=== PATIENT | female | born 1995 | race American Indian/Alaskan Native ===

== ENCOUNTER 2016-10-30 19:59 | Inpatient (IN) | payer MEDICAID, OTHER ==
[2016-10-30] MEDS ORDERED: Sodium Chloride 0.9% 1,000 ML IV ONE (21:11)
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
[2016-10-30] MEDS ORDERED: Insulin Regular, Human 100 Units/ML 10 ML Vial IVPUSH ONE (21:21)
[2016-10-30 21:37] LABS: CHLORIDE,CL 84 mmol/L (101-111); SODIUM,NA 115 mmol/L (135-145)
[2016-10-30] MEDS ORDERED: HYDROmorphone 1 MG/ML Syringe IVPUSH ONE (22:03)
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
[2016-10-30] MEDS ORDERED: Ondansetron 4 MG/2 ML SDV IV PRN (23:03)
[2016-10-30] MEDS ORDERED: Sodium Chloride 0.9% 1,000 ML IV SCH (23:15)
[2016-10-31] MEDS: Dextrose 5%-0.9% NaCl 1,000 ML IV SCH ×2 (01:41→15:22)
[2016-10-31 06:49] LABS: CHLORIDE,CL 100 mmol/L (101-111); SODIUM,NA 134 mmol/L (135-145)
[2016-10-31] MEDS ORDERED: Potassium Chloride 20 MEQ in Premix Bag 1 BAG IV ONE (07:50)
[2016-10-31] MEDS ORDERED: Potassium Chloride 10 MEQ Tab.ER PO ONE (07:51)
[2016-10-31] MEDS: Acetaminophen/oxyCODONE 325-5 MG Tab PO PRN ×2 (09:47→22:21)
[2016-10-31] MEDS: Pantoprazole 40 MG Vial IVPUSH SCH (09:59)
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
[2016-10-31] MEDS ORDERED: Insulin Aspart 100 Units/ML 3 ML Pen SUBCUT SCH (17:00)
[2016-10-31] MEDS: Insulin Aspart 100 Units/ML 3 ML Pen SUBCUT SCH (21:05)
[2016-11-01] MEDS ORDERED: Insulin Aspart 100 Units/ML 3 ML Pen SUBCUT STA (01:13)
[2016-11-01] MEDS: Insulin Aspart 100 Units/ML 3 ML Pen SUBCUT SCH ×6 (01:44→22:16)
[2016-11-01] MEDS: Dextrose 5%-0.9% NaCl 1,000 ML IV SCH (04:55)
[2016-11-01 07:28] LABS: CHLORIDE,CL 107 mmol/L (101-111); SODIUM,NA 138 mmol/L (135-145)
[2016-11-01] MEDS: Acetaminophen 325 MG Tab PO PRN ×2 (07:38→22:18)
[2016-11-01] MEDS ORDERED: Insulin Detemir 100 Units/ML 3 ML Pen SUBCUT SCH ×2 (09:00→12:14)
[2016-11-01] MEDS ORDERED: Insulin Aspart 100 Units/ML 3 ML Pen SUBCUT ONE (09:18)
[2016-11-01] MEDS ORDERED: Enoxaparin 30 MG/0.3 ML Syringe SUBCUT SCH (09:30)
[2016-11-01] MEDS: Pantoprazole 40 MG Vial IVPUSH SCH (13:16)
[2016-11-01] MEDS ORDERED: Insulin Detemir 100 Units/ML 3 ML Pen SUBCUT ONE (13:16)
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
[2016-11-01] MEDS: Enoxaparin 40 MG/0.4 ML Syringe SUBCUT SCH (15:07)
[2016-11-01] MEDS: Acetaminophen/oxyCODONE 325-5 MG Tab PO PRN (15:07)
[2016-11-02 06:54] LABS: CHLORIDE,CL 101 mmol/L (101-111); SODIUM,NA 134 mmol/L (135-145)
[2016-11-02] MEDS: Acetaminophen/oxyCODONE 325-5 MG Tab PO PRN (06:59)
[2016-11-02] MEDS: Insulin Aspart 100 Units/ML 3 ML Pen SUBCUT SCH ×2 (08:13→11:35)
[2016-11-02] MEDS: Enoxaparin 40 MG/0.4 ML Syringe SUBCUT SCH (09:08)
[2016-11-02] MEDS ORDERED: Insulin Aspart 100 Units/ML 3 ML Pen SUBCUT ONE (09:16)
[2016-11-02 11:02] VITALS: BP 109/67
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
== END 2016-11-02 11:20 | disposition home or self-care (01) | DRG 639 ==
LOC: DL.ED 19:59 → DL.MS 22:21
PROVIDERS: ADMIT Internal Medicine Nephrology; ATTEND Internal Medicine Nephrology
DX: E10.10 Type 1 diabetes mellitus with ketoacidosis without coma (principal); Z79.4 Long term (current) use of insulin; E86.0 Dehydration; S20.211A Contusion of right front wall of thorax, initial encounter; Z87.891 Personal history of nicotine dependence; E87.5 Hyperkalemia; R20.2 Paresthesia of skin; T38.3X6A Underdosing of insulin and oral hypoglycemic [antidiabetic] drugs, initial encounter; Z91.128 Patient's intentional underdosing of medication regimen for other reason; Y04.2XXA Assault by strike against or bumped into by another person, initial encounter; Z88.8 Allergy status to other drugs, medicaments and biological substances
CPT/HCPCS: 36415; 71101-RT; 72040; 80048; 80053; 80305; 81001; 81025; 82009; 82962; 84132; 85025; 96361; 96374; 96375; 99285; A9270-GY; C9113; J1170; J1650; J1815-GY; J2405; J3480; J7030; J7042

== ENCOUNTER 2016-11-23 17:38 | Emergency (ER) | payer MEDICAID ==
[2016-11-23] MEDS ORDERED: LORazepam 2 MG/ML Syringe ONE (19:40)
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
[2016-11-23 21:08] LABS: CHLORIDE,CL 93 mmol/L (101-111); SODIUM,NA 126 mmol/L (135-145)
[2016-11-23] MEDS ORDERED: Insulin Regular, Human 100 Units/ML 10 ML Vial IVPUSH ONE (21:20)
[2016-11-23] MEDS ORDERED: Sodium Chloride 0.9% 1,000 ML IV ONE ×2 (21:24→22:28)
[2016-11-23 21:45] VITALS: BP 120/69
[2016-11-23] MEDS ORDERED: HYDROmorphone 1 MG/ML Syringe IVPUSH ONE (22:06)
[2016-11-23] MEDS ORDERED: Ondansetron 4 MG/2 ML SDV IV ONE (22:06)
[2016-11-23] MEDS ORDERED: Iopamidol 612 MG/ML 75 ML Bottle IVPUSH ONE (23:15)
== END 2016-11-24 00:24 | disposition home or self-care (01) ==
LOC: DL.ED 17:38
DX: E10.65 Type 1 diabetes mellitus with hyperglycemia (principal); E87.1 Hypo-osmolality and hyponatremia; D64.9 Anemia, unspecified; Z90.49 Acquired absence of other specified parts of digestive tract; Z79.4 Long term (current) use of insulin; Z88.8 Allergy status to other drugs, medicaments and biological substances
CPT/HCPCS: 36415; 74177; 80053; 80305; 81001; 81025; 82009; 82150; 82962; 83690; 84703; 85025; 87491; 87591; 96365; 96366; 96375; 99284; J1170; J2405; J7030; Q9967

== ENCOUNTER 2016-12-14 05:57 | Day surgery (SDC) | payer MEDICAID ==
[2016-12-14] MEDS ORDERED: fentaNYL 100 MCG/2 ML SDV ONE (06:14)
[2016-12-14] MEDS ORDERED: Midazolam 1 MG/ML 2 ML SDV ONE (06:14)
[2016-12-14] MEDS ORDERED: Dextrose 5%-0.45% NaCl 1,000 ML IV SCH (06:30)
[2016-12-14] MEDS ORDERED: fentaNYL 100 MCG/2 ML SDV IV ONE ×3 (07:18→10:03)
[2016-12-14] MEDS ORDERED: Midazolam 1 MG/ML 2 ML SDV IV ONE ×4 (08:22→10:03)
--- NOTE | 2016-12-14 10:24 | OR ---
DATE: 12/14/2016 PROCEDURE: Esophagogastroduodenoscopy and multiple pinch biopsies. INSTRUMENT USED: GIF-Q180 Olympus video panendoscope. PREMEDICATIONS: No oral topical anesthesia used. Fentanyl 100 mcg intravenous, Versed 2 mg intravenous given. The procedure was done under pulse oximetry, BP recording, and manager cardiac cath. INDICATION: The patient with type 1 diabetes mellitus having persistent abdominal pain, as well as anemia unexplained not responsive to medical measures. Esophagogastroduodenoscopy is performed for detection of any active erosive lesions, malignancy also under consideration, H. pylori status to be determined, small bowel biopsies to be obtained for celiac disease if indicated, endoscopic hemostasis therapy if needed. DESCRIPTION OF PROCEDURE: The scope was passed with ease. Adequate visualization of the esophagus was made from proximal to distal areas. No upper esophageal lesions identified. No distal esophageal stricture. No uphill or downhill esophageal varices. No Miranda-Hernandez tear. No evidence of erosive esophagitis by [place] criteria. No esophageal polyp or tumor mass identified. Z-line was seen at around 40 cm distal to the oral verge, configuration consistent with grade 1 by ZAP classification. No proximal gastric varices noted. Gastric fundus examination by retroflexion showed no polypoid lesions. No gastric ulcer, malignant mass, or vascular ectasia identified. Gastric mucosa was found to be a bit granular especially in the body. Duodenal bulb showed no ulcer. Visualized second part of the duodenum was unremarkable. Multiple pinch biopsies, 4 in number were taken from different areas of the second part of the duodenum, and tissues were also obtained from 9 and 12 o'clock positions of the duodenal bulb and sent for any histopathologic evidence of celiac disease. Multiple pinch biopsies were also obtained from the gastric antrum and proximal body and sent for PyloriTek test for H. pylori and histopathology. No bleeding was noted from any of the visualized areas at the completion of examination. Photographs were taken of the duodenal bulb, gastric antrum, fundus, and distal esophagus. IMPRESSION: Normal study. The patient tolerated the procedure well. [facility] /[id number]
[2016-12-14 11:14] VITALS: BP 116/80
--- NOTE | 2016-12-14 11:41 | LETTER ---
12/14/2016 Nicole Mcmanus MD [facility] [address] [place] [address] RE: ZACH GRAMAJO : [address] Mcmanus: Ms. Zach Carlisle had esophagogastroduodenoscopy done this morning and she tolerated the procedure well. I herewith send a copy of the endoscopy note and photographs for your review. Thank you. Sincerely, [facility] /[id number]
== END 2016-12-14 10:37 | disposition home or self-care (01) ==
LOC: DL.ENDO 05:57
PROVIDERS: ATTEND Internal Medicine Gastroenterology
DX: R10.9 Unspecified abdominal pain (principal); D64.9 Anemia, unspecified; E10.9 Type 1 diabetes mellitus without complications
CPT/HCPCS: 43239; 81025; 87077; J2250; J3010; J7042

== ENCOUNTER 2016-12-18 00:07 | Emergency (ER) | payer MEDICAID ==
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
[2016-12-18 02:17] VITALS: BP 143/73
[2016-12-18 02:30] LABS: CHLORIDE,CL 95 mmol/L (101-111); SODIUM,NA 132 mmol/L (135-145)
[2016-12-18] MEDS ORDERED: LORazepam 2 MG/ML Syringe IVPUSH ONE (02:48)
== END 2016-12-18 04:10 | disposition home or self-care (01) ==
LOC: DL.ED 00:07
DX: R20.8 Other disturbances of skin sensation (principal); E10.9 Type 1 diabetes mellitus without complications; Z88.8 Allergy status to other drugs, medicaments and biological substances; Z79.4 Long term (current) use of insulin; Z86.2 Personal history of diseases of the blood and blood-forming organs and certain disorders involving the immune mechanism; Z79.899 Other long term (current) drug therapy; Z87.891 Personal history of nicotine dependence
CPT/HCPCS: 36415; 80053; 80305; 81001; 81025; 82962; 85025; 96374; 99284; J2060

== ENCOUNTER 2016-12-23 07:05 | Day surgery (SDC) | payer MEDICAID ==
[~2016-12-23 07:05] MED LIST: Dextrose 5%-0.45% NaCl 1,000 ML IV SCH; Midazolam 1 MG/ML 2 ML SDV ONE; Sodium Chloride 0.9% 10 ML Syringe FLUSH PRN; fentaNYL 100 MCG/2 ML SDV ONE
[2016-12-23] MEDS ORDERED: fentaNYL 100 MCG/2 ML SDV IV ONE ×3 (08:17→14:52)
[2016-12-23] MEDS ORDERED: Midazolam 1 MG/ML 2 ML SDV IV ONE ×4 (08:18→14:52)
[2016-12-23 10:30] VITALS: BP 116/66
--- NOTE | 2016-12-23 10:50 | OR ---
DATE: 12/23/2016 PROCEDURE: Incomplete colonoscopy. INSTRUMENT USED: PCF-H180 Olympus video colonoscope. PREMEDICATIONS: Fentanyl 100 mcg intravenous, Versed 2.5 mg intravenous. Nasal O2 cannula. The procedure was done under pulse oximetry, BP recording, and case monitor. INDICATION: The patient with unexplained iron-deficiency anemia and multiple abdominal symptoms. Colonoscopic examination is done for detection of any polypoid lesions and removal, endoscopic hemostasis therapy if needed. DESCRIPTION OF PROCEDURE: Initial rectal exam was unremarkable. Rigid anoscopy was normal. The colonoscope was passed with ease up to distal descending colon. Large amount of solid fecal material was noted precluding further advancement of the scope to visualize proximal areas. No bleeding was noted from any of the visualized areas at the commencement of the examination. No stricture. No vascular ectasia. No large isolated ulcerations seen. No evidence of diffuse inflammatory bowel disease in the form of friability, contact bleeding, or ulcerations. No polyp or tumor mass identified. No bleeding was noted from the visualized areas at the completion of examination. IMPRESSION: Normal study. The patient tolerated the procedure well. [facility] /[id number]
--- NOTE | 2016-12-23 10:56 | LETTER ---
12/23/2016 Nicole Mcmanus MD [facility] [address] [place] [address] RE: ZACH VILLANUEVA : [address] Mcmanus. Ms. Zach Villanueva had colonoscopic examination this morning and she tolerated the procedure well. I herewith send a copy of the endoscopy note for your review. The examination was incomplete due to the presence of large amount of solid fecal material that could not be aspirated clear. She will be rescheduled with 2-day bowel preparation later. Thank you Sincerely, [facility] /[id number]
== END 2016-12-23 10:30 | disposition home or self-care (01) ==
LOC: DL.ENDO 07:05
PROVIDERS: ATTEND Internal Medicine Gastroenterology
DX: D50.9 Iron deficiency anemia, unspecified (principal); E10.9 Type 1 diabetes mellitus without complications; Z88.8 Allergy status to other drugs, medicaments and biological substances; Z79.4 Long term (current) use of insulin; Z79.899 Other long term (current) drug therapy; Z90.49 Acquired absence of other specified parts of digestive tract
CPT/HCPCS: 45378; J2250; J3010; J7042

== ENCOUNTER 2017-01-14 05:54 | Day surgery (SDC) | payer MEDICAID ==
[~2017-01-14 05:54] MED LIST changes: -Dextrose 5%-0.45% NaCl 1,000 ML IV SCH; +Midazolam 1 MG/ML 2 ML SDV IV ONE; -Sodium Chloride 0.9% 10 ML Syringe FLUSH PRN; +fentaNYL 100 MCG/2 ML SDV IV ONE
[2017-01-14] MEDS ORDERED: fentaNYL 100 MCG/2 ML SDV IV ONE ×2 (06:49→06:50)
[2017-01-14] MEDS ORDERED: Midazolam 1 MG/ML 2 ML SDV IV ONE ×4 (06:50→06:53)
[2017-01-14] MEDS ORDERED: Sodium Chloride 0.9% 10 ML Syringe FLUSH PRN (07:30)
[2017-01-14] MEDS ORDERED: Dextrose 5%-0.45% NaCl 1,000 ML IV SCH (07:30)
[2017-01-14 09:38] VITALS: BP 137/89
--- NOTE | 2017-01-14 10:45 | OR ---
DATE: 01/14/2017 PROCEDURE: Incomplete colonoscopy. INSTRUMENT USED: PCF-160AL Olympus video colonoscope. PREMEDICATIONS: Fentanyl 100 mcg intravenous, Versed 3 mg intravenous. The procedure was done under pulse oximetry, BP recording, and night monitor. INDICATION: The patient with unexplained iron-deficiency anemia and multiple persistent abdominal symptoms. Colonoscopic examination is done for detection of any polypoid lesions and removal, endoscopic hemostasis therapy if needed. DESCRIPTION OF PROCEDURE: Initial rectal exam showed some fecal material at the tip of the finger. Rigid anoscopy was normal. The colonoscope was passed with ease up to mid descending colon, beyond which the scope could not be passed due to the large amount of solid material blocking the area. No stricture. No vascular ectasia. No large isolated ulcerations seen. No evidence of diffuse inflammatory bowel disease in the form of friability, contact bleeding, or ulcerations. No polyp or tumor mass identified. Large amount of solid fecal material was noted at the visualized colon. No bleeding was noted from any of the visualized areas at the completion of examination. IMPRESSION: Normal study. The patient tolerated the procedure well. [facility] /[id number]
--- NOTE | 2017-01-14 11:46 | LETTER ---
01/14/2017 Nicole Mcmanus MD [facility] [address] [place] [address] RE: ZACH GRAMAJO : [address] Mcmanus: Ms. Zach Carlisle had incomplete colonoscopy done this morning and she tolerated the procedure well. I herewith send a copy of the endoscopy note and photographs for your review. Thank you. Sincerely, [facility] /[id number]
== END 2017-01-14 08:42 | disposition home or self-care (01) ==
LOC: DL.ENDO 05:54
PROVIDERS: ATTEND Internal Medicine Gastroenterology
DX: D50.9 Iron deficiency anemia, unspecified (principal)
CPT/HCPCS: 45378; J2250; J3010; J7042

== ENCOUNTER 2017-02-20 13:04 | Emergency (ER) | payer MEDICAID ==
[2017-02-20 13:44] VITALS: BP 117/71
[2017-02-20] MEDS ORDERED: Acetaminophen 500 MG Tab PO ONE (14:55)
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
== END 2017-02-20 15:52 | disposition home or self-care (01) ==
LOC: DL.ED 13:04
DX: S90.31XA Contusion of right foot, initial encounter (principal); E10.9 Type 1 diabetes mellitus without complications; Z90.49 Acquired absence of other specified parts of digestive tract; Z79.4 Long term (current) use of insulin; Z79.899 Other long term (current) drug therapy; Z88.8 Allergy status to other drugs, medicaments and biological substances; W22.8XXA Striking against or struck by other objects, initial encounter
CPT/HCPCS: 73620; 80305; 81025; 99283; A9270

== ENCOUNTER 2017-03-31 19:41 | Inpatient (IN) | payer MEDICAID ==
[2017-03-31] MEDS ORDERED: Sodium Chloride 0.9% 1,000 ML IV ONE (20:02)
[2017-03-31] MEDS ORDERED: Lidocaine 1% 30 ML SDV INJECT ONE (20:21)
[2017-03-31 20:46] LABS: CHLORIDE,CL 88 mmol/L (101-111); SODIUM,NA 124 mmol/L (135-145)
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
[2017-03-31] MEDS ORDERED: Insulin Regular, Human 100 Units/ML 3 ML Vial IV ONE (21:00)
[2017-03-31] MEDS ORDERED: Morphine 2 MG/ML Syringe IVPUSH ONE (21:50)
[2017-03-31] MEDS ORDERED: Zolpidem 5 MG Tab PO PRN (22:18)
[2017-03-31] MEDS: Acetaminophen/oxyCODONE 325-5 MG Tab PO PRN (23:03)
[2017-03-31] MEDS: Pantoprazole 40 MG Tab.CR PO SCH (23:03)
[2017-03-31] MEDS: Piperacillin/Tazobactam 3.375 GM in Sodium Chloride 0.9% 100 ML IV SCH (23:42)
[2017-03-31] MEDS: Sodium Chloride 0.9% 1,000 ML IV SCH (23:46)
[2017-04-01] MEDS: Ondansetron 4 MG/2 ML SDV IVPUSH PRN (00:44)
[2017-04-01] MEDS ORDERED: Metoclopramide 10 MG/2 ML SDV IVPUSH PRN (01:46)
[2017-04-01] MEDS: Promethazine 25 MG/ML SDV IM PRN (02:00)
[2017-04-01] MEDS: Acetaminophen 325 MG Tab PO PRN (02:01)
--- NOTE | 2017-04-01 02:05 | HP ---
CHIEF COMPLAINT: Fevers, chills, weakness, and abdominal pain. HISTORY OF PRESENTING ILLNESS: Ms. Giselle Carlisle is a 22-year-old female with medical history significant for type 1 diabetes mellitus, presented to the ER today with complaints of increasing weakness and tiredness and was noted to have possible cellulitis involving the right lower abdomen, suprapelvic area and also urinary tract infection and uncontrolled diabetes requiring admission to the hospital. At this time, the patient complains that she has been ill for the last 1 week, where she was having fevers and chills at home. She did not take her temperature at home. She was also feeling nauseated and dry heaving and noted to have some swelling in the lower abdomen towards the pelvic region and was noted to have folliculitis leading to possible cellulitis. She grades the pain as 8/10 in intensity, aggravated on ambulation, relieved with pain medication, nonradiating type of pain, associated with nausea, but no vomiting. Denies any chest pain. No shortness of breath. Denied any history of similar complaints in the past. The patient has a longstanding history of type 1 diabetes, where she was diagnosed first at the age of 12 and has been on insulin, but since November, she has not been taking her insulin and was not following with her primary care physician. The patient denied any history of chest pain on exertion. No history of dyspnea on exertion. No history of orthopnea or paroxysmal nocturnal dyspnea. The patient denied any history of hematemesis, hematochezia, or melanotic stools. Normal bowel and bladder habits, but lately, she noticed some blood on the tissue, but not in the stools. REVIEW OF SYSTEMS: Complete review of systems including skin; ears, nose, and throat; cardiovascular system; respiratory system; gastrointestinal system; genitourinary system; hematology; oncology; neurology; allergy; immunology; and constitutional were all evaluated and were negative except for the above said notes. PAST MEDICAL HISTORY: Significant for: 1. Type 1 diabetes mellitus. 2. Pleural effusion. PAST SURGICAL HISTORY: Significant for chest tubes on the left side. FAMILY HISTORY: Significant for diabetes in her mother and father and also brother and sister. SOCIAL HISTORY: The patient had history of tobacco use in the past, but the patient claims that she had quit smoking lately, and no history of alcohol intake. ALLERGIC HISTORY: Noted to have allergies to naproxen, which causes rash and hives. HOME MEDICATIONS: The patient is currently not taking any medications, but she is supposed to be on insulin at home. PHYSICAL EXAMINATION: Vital Signs: Temperature of 99.7, pulse of 122, blood pressure 121/67, respiratory rate of 20, and saturating at 100% on room air. General Appearance: The patient is well oriented to time, place, and person. Follows commands spontaneously. Cardiovascular System: S1 and S2 heard with normal intensity. No gallops. Respiratory System: Clear to auscultation bilaterally. No wheeze. No crepitations. Abdomen: Soft. Bowel sounds positive. Nontender. No rigidity. Extremities: No edema in bilateral lower extremities. Neurologic: No gross focal neurological deficit. Skin: She is noted to have folliculitis involving the right lower abdomen close to the pelvic area towards the right groin status post incision and drainage of the abscess. LABORATORY DATA: Reviewed. WBC 16.6, hemoglobin 10.1, hematocrit 32.7, MCV 74.8, MCH 23.1, and platelet count 362. Sodium 124, potassium 4.2, chloride 88, bicarb 14, BUN 14, creatinine 1.1, and glucose 661. AST 12 and ALT 9. Urinalysis: Large occult blood, nitrites positive, hCG negative, and ketones greater than 160, positive. ASSESSMENT: 1. Type 1 diabetic ketoacidosis. 2. Possible sepsis. 3. Urinary tract infection. 4. Folliculitis leading to cellulitis. 5. Type 1 diabetes mellitus, uncontrolled. 6. Noncompliance with medical treatment plan. PLAN: 1. Type 1 diabetic ketoacidosis. The patient will be admitted to the hospital, started on IV fluids, and by DKA protocol, we will have her on IV insulin drip. We will get a hemoglobin A1c and closely follow. Her latest hemoglobin A1c is from August, which is greater than 14, suggestive of uncontrolled diabetes. The patient is educated about the importance of being compliant with medical treatment, especially the insulin, which she understands and verbalized the same. We will keep her hydrated with IV fluids. 2. Folliculitis with cellulitis. The patient is noted to have folliculitis involving the right groin area. We will start her on IV antibiotics. The patient has history of MRSA in the past. We will start on Zosyn and vancomycin given her underlying possible sepsis. We will obtain serial lactic acid levels. 3. Hyponatremia. This is pseudohyponatremia from hyperglycemia. We will keep her hydrated with IV fluids and recheck a basic metabolic panel in a.m. 4. Anemia. The patient's hemoglobin is 10.1. Her MCV is decreased to 74.8 and MCH 23.1 suggestive of possible iron deficiency anemia. We will order for iron, B12, and folate levels and also a TSH level in a.m. and closely follow. The patient complains of having seen some blood on the tissue paper. We will closely follow, and if she has any GI bleed, she would benefit from GI consultation, but currently, no indication for an acute GI bleed. 5. Deep vein thrombosis prophylaxis. We will have her on heparin 5000 units subcutaneous q.8 hourly for DVT prophylaxis. 6. Urinary tract infection. The patient will be on Zosyn and vancomycin. We will obtain urine cultures and blood cultures and titrate the antibiotics once we have the culture reports available. CODE STATUS: Full code. Discussed with Dr. Archie Santiago regarding the plan of care. Reviewed the labs and medications. Reviewed the old charts. [facility] /[id number]
[2017-04-01] MEDS: Acetaminophen 650 MG Supp RECTAL PRN ×2 (02:38→07:19)
[2017-04-01] MEDS: Morphine 2 MG/ML Syringe IVPUSH PRN ×2 (03:10→07:19)
[2017-04-01] MEDS ORDERED: Insulin Detemir 100 Units/ML 3 ML Pen SUBCUT ONE (03:43)
[2017-04-01] MEDS: Piperacillin/Tazobactam 3.375 GM in Sodium Chloride 0.9% 100 ML IV SCH ×3 (05:02→17:35)
[2017-04-01] MEDS: Pantoprazole 40 MG Tab.CR PO SCH (05:48)
[2017-04-01] MEDS: Sodium Chloride 0.9% 1,000 ML IV SCH ×3 (07:02→20:30)
[2017-04-01] MEDS ORDERED: Insulin Detemir 100 Units/ML 3 ML Pen SUBCUT SCH (09:00)
[2017-04-01] MEDS ORDERED: Magnesium Sulfate/Water 2 GM in Premix Bag 1 BAG IV ONE (09:47)
[2017-04-01] MEDS: Enoxaparin 40 MG/0.4 ML Syringe SUBCUT SCH (10:05)
[2017-04-01] MEDS ORDERED: Sodium Chloride 0.9% 1,000 ML IV ONE (11:48)
[2017-04-01] MEDS: Acetaminophen/oxyCODONE 325-5 MG Tab PO PRN ×2 (13:32→21:34)
[2017-04-01] MEDS: Phosphorus #1 250 MG Tab PO SCH ×2 (13:32→21:34)
--- NOTE | 2017-04-01 14:59 | PN ---
DATE: 04/01/2017 SUBJECTIVE: Ms. Giselle Carlisle is a 22-year-old female with medical history significant for type 1 diabetes mellitus, admitted to the hospital with fevers and chills. Noted to have suprapubic folliculitis leading to cellulitis and possible sepsis along with diabetic ketoacidosis. For the last 24 hours, the patient is continued on IV fluids and also on IV insulin drip. She continued to have fevers overnight requiring Tylenol. She continues to have pain to the right suprapubic area, 3 to 4/10 in intensity, aggravated on movement, relieved with pain medication, nonradiating type of pain, not associated with any nausea or vomiting. Denies any chest pain. No shortness of breath. REVIEW OF SYSTEMS: Cardiovascular, respiratory, gastrointestinal, neurology, constitutional were all evaluated. PHYSICAL EXAMINATION: Vital Signs: Temperature of 102.5, pulse of 116, respiratory rate of 20, blood pressure of 98/49, and saturating at 100% on room air. General Appearance: The patient is well oriented to time, place, and person. Follows commands spontaneously. Cardiovascular System: S1 and S2 heard with normal intensity. No gallops. Respiratory System: Clear to auscultation bilaterally. No wheeze. No crepitations. Abdomen: Soft. Bowel sounds positive. Nontender. No rigidity. The patient is noted to have small folliculitis area around the suprapubic area, mostly towards the right groin. Mild erythema and tenderness noted. Neurology: No gross focal neurological deficit. MEDICATIONS: Reviewed. Continue with: 1. Tylenol 650 every 4 hours as needed for pain and fever. 2. Docusate sodium 100 mg twice a day as needed for constipation. 3. Lovenox 40 mg subcutaneous daily. 4. Levemir 50 mg daily, subcutaneous. 5. Morphine 2 mg IV every 2 hours as needed for pain. 6. Zofran 4 mg IV every 4 hours as needed for nausea and vomiting. 7. Percocet 5/325 mg every 4 hours as needed for pain. 8. Protonix 40 mg daily. 9. Zosyn. Pharmacy to dose. 10.Vancomycin. Pharmacy to dose. LABORATORY DATA: Labs reviewed. 1. WBC 11.4, hemoglobin 8.8, hematocrit 29.2, and platelet count 237. 2. Sodium 136, potassium 4.2, chloride 106, bicarb 17. BUN 14, creatinine 1.4, glucose 294. 3. Calcium 7.9, magnesium 1.2, phosphorus 2. ASSESSMENT: 1. Type one diabetes mellitus, uncontrolled. 2. Diabetic ketoacidosis. 3. Folliculitis, leading to cellulitis. 4. Possible sepsis. 5. Hyponatremia, resolved. 6. Hypomagnesemia. 7. Hypophosphatemia. 8. Anemia. PLAN: 1. Diabetic ketoacidosis. The patient is currently on IV insulin drip. Continue the same. The patient has a longstanding history of type 1 diabetes mellitus. She has been noncompliant with medical treatment. She has not used her insulin since November. The patient was explained about the importance of being compliant with medications. We will consult medical educator today. 2. Sepsis. The patient is noted to have fevers, leukocytosis, tachycardia, tachypnea, consistent with sepsis, mainly from underlying cellulitis. We will continue with broad-spectrum antibiotics. She is currently on Zosyn and vancomycin. Await cultures and titrate the antibiotics. The patient's lactic acid is within normal limits. 3. Cellulitis. The patient is noted to have folliculitis involving the right suprapubic area towards the right groin. The patient had mild abscess requiring incision and drainage by ER. No further abscess drainage required at this time. We will continue broad-spectrum antibiotics. Her erythema seems to be improving. 4. Hyponatremia, resolved. The patient was noted to have sodium of 124, today is 136. Continue with IV fluids. 5. Hypomagnesemia and hypophosphatemia. We will replace with IV magnesium sulfate and oral phosphate. We will recheck a magnesium and a phosphorus level in the a.m. 6. Anemia. The patient's hemoglobin is down to 8.8 and hematocrit 29.2. She is noted to have low MCV and MCH consistent with possible iron deficiency anemia. Ordered for iron studies, B12, and folate levels. Awaiting for the reports. We will replace as needed. 7. DVT prophylaxis. The patient is currently on Lovenox for DVT prophylaxis. [facility] /[id number]
[2017-04-01] MEDS: Insulin Detemir 100 Units/ML 3 ML Pen SUBCUT SCH (18:05)
[2017-04-02] MEDS: Piperacillin/Tazobactam 3.375 GM in Sodium Chloride 0.9% 100 ML IV SCH ×4 (00:51→18:45)
[2017-04-02] MEDS: Ondansetron 4 MG/2 ML SDV IVPUSH PRN (01:24)
[2017-04-02] MEDS: Sodium Chloride 0.9% 1,000 ML IV SCH ×3 (03:34→23:42)
[2017-04-02] MEDS: Insulin Aspart 100 Units/ML 3 ML Pen SUBCUT SCH ×7 (03:39→23:55)
[2017-04-02] MEDS: Pantoprazole 40 MG Tab.CR PO SCH (06:14)
[2017-04-02] MEDS: Morphine 2 MG/ML Syringe IVPUSH PRN ×5 (06:45→22:57)
[2017-04-02] MEDS: Enoxaparin 40 MG/0.4 ML Syringe SUBCUT SCH (09:48)
[2017-04-02] MEDS: Phosphorus #1 250 MG Tab PO SCH ×3 (09:48→21:27)
[2017-04-02] MEDS: Potassium Chloride 10 MEQ Tab.ER PO SCH ×3 (13:17→18:06)
[2017-04-02] MEDS: Loperamide 2 MG Cap PO PRN ×2 (13:17→18:32)
[2017-04-02] MEDS: Insulin Detemir 100 Units/ML 3 ML Pen SUBCUT SCH ×2 (13:28→21:25)
--- NOTE | 2017-04-02 13:53 | PN ---
DATE: 04/02/2017 Ms. Giselle Carlisle is a 22-year-old female with medical history significant for type 1 diabetes mellitus, admitted to the hospital with complaints of fevers and chills. Noted to have suprapubic folliculitis leading to cellulitis and possible sepsis along with diabetic ketoacidosis. For the last 24 hours, the patient was continued on IV fluids. We were able to switch her to subcutaneous insulin with Levemir. She continues to feel weak and tired. She denies any chest pain. No shortness of breath. She complains of having loose stools and incontinence to urine and also to the stools. Denies any abdominal pain at this time. REVIEW OF SYSTEMS: Cardiovascular, respiratory, gastrointestinal, neurology, constitutional were all evaluated. PHYSICAL EXAMINATION: Vital Signs: Temperature of 98.3, pulse of 106, blood pressure 112/79, respiratory rate of 18, and saturating at 100% on room air. General Appearance: Patient is well oriented to time, place, and person. Follows commands spontaneously. Cardiovascular System: S1, S2 heard with normal intensity. No gallops. Respiratory: Clear to auscultation bilaterally. No wheeze. No crepitations. Abdomen: Soft. Bowel sounds positive. Nontender. No rigidity. Extremities: No edema in bilateral lower extremities. MEDICATIONS: Reviewed. Continue with: 1. Tylenol 650 every 4 hours as needed for pain and fever. 2. Calcium carbonate 500 mg twice a day. 3. Lovenox 40 mg subcutaneous daily. 4. Insulin Levemir 50 units at night. 5. Magnesium hydroxide 30 mL every 12 hours as needed for constipation. 6. Morphine 2 mg IV every 2 hours as needed for pain. 7. Protonix 40 mg daily. 8. Neutra-Phos 500 mg 3 times a day. 9. Zosyn and vancomycin, pharmacy to dose. LABORATORY DATA: WBC 13.7, hemoglobin 7.9, hematocrit 25.7, and platelet count 179. Sodium 134, potassium 3.2, chloride 110, bicarb 15, BUN 20, creatinine 1.2, glucose 175. Vancomycin random 26. Vitamin B12 of 339. Folate greater than 22. Iron less than 10. Phosphorus 3.5, magnesium 1.8, and calcium 6.5. ASSESSMENT: 1. Diabetic ketoacidosis, resolved. 2. Possible sepsis with underlying urinary tract infection and also cellulitis. 3. Cellulitis. 4. Hyponatremia. 5. Hypokalemia. 6. Hypomagnesemia. 7. Hypophosphatemia. 8. Hypocalcemia. 9. Type 1 diabetes mellitus. 10.Anemia. PLAN: 1. Diabetic ketoacidosis, improved and resolved. The patient is able to switch her to subcutaneous insulin with Levemir. Continue with NovoLog supplemental scale as needed. Try to avoid any hypoglycemic episodes. She was noted to be hypoglycemic earlier, however, on hypoglycemic protocol. Closely follow. 2. Cellulitis. The patient is noted to have folliculitis along with cellulitis involving the right suprapubic region, which seems to be improved. She is currently on IV Zosyn and vancomycin. I awaiting for culture reports. Her wound cultures are showing heavy growth of beta hemolytic gram-positive cocci. ID and susceptibility to be followed. Closely follow. 3. Urinary tract infection. She is noted to have gram-negative rods in the urine culture. Continue Zosyn for now. 4. Electrolyte imbalance. The patient is noted to have multiple electrolyte imbalance including hyponatremia, hypokalemia, hypocalcemia, hypomagnesemia, and hypophosphatemia requiring oral supplementation. We will recheck a basic metabolic panel in the a.m. We will start her on calcium carbonate at this time. Continue with magnesium and phosphorus supplements also. 5. Anemia. The patient is noted to have worsening anemia. She is noted to have iron-deficiency anemia. She denies any hematemesis, hematochezia, or melenic stools. The patient noted to have a history of hemorrhoids. Unsure if patient is having hemorrhoidal bleed. In any case, we will start her on iron supplement also, but we will give her some IV iron while in the hospital. 6. Generalized debility. We will have Physical Therapy and Occupational Therapy evaluate and treat the patient. 7. Type 1 diabetes mellitus, seems to be improving at this time. We will continue with Levemir at night and also have her on supplemental scale insulin as needed. The patient was explained about the importance of being compliant with her insulin regimen which she understands and verbalized the same. The patient has been noncompliance with insulin since November of this year. family living educator consultation was made. [facility] /[id number]
[2017-04-02] MEDS: Calcium Carbonate 500 MG Tab.Chew PO SCH (18:06)
[2017-04-02] MEDS: Iron Sucrose Complex 100 MG in Sodium Chloride 0.9% 100 ML IV SCH (18:18)
[2017-04-02] MEDS: Acetaminophen 325 MG Tab PO PRN (21:28)
[2017-04-03] MEDS: Piperacillin/Tazobactam 3.375 GM in Sodium Chloride 0.9% 100 ML IV SCH ×4 (00:39→18:27)
[2017-04-03] MEDS: Insulin Aspart 100 Units/ML 3 ML Pen SUBCUT SCH ×5 (03:39→21:13)
[2017-04-03] MEDS: Loperamide 2 MG Cap PO PRN ×2 (03:40→18:10)
[2017-04-03] MEDS: Pantoprazole 40 MG Tab.CR PO SCH (05:50)
[2017-04-03] MEDS: Morphine 2 MG/ML Syringe IVPUSH PRN ×4 (06:01→19:42)
[2017-04-03 06:43] LABS: CHLORIDE,CL 116 mmol/L (101-111); SODIUM,NA 140 mmol/L (135-145)
[2017-04-03] MEDS: Phosphorus #1 250 MG Tab PO SCH ×3 (09:15→21:12)
[2017-04-03] MEDS: Potassium Chloride 10 MEQ Tab.ER PO SCH ×3 (09:16→17:51)
[2017-04-03] MEDS: Enoxaparin 40 MG/0.4 ML Syringe SUBCUT SCH (09:16)
[2017-04-03] MEDS: Calcium Carbonate 500 MG Tab.Chew PO SCH ×2 (09:16→17:51)
--- NOTE | 2017-04-03 12:37 | PN ---
DATE: 04/03/2017 SUBJECTIVE: Ms. Giselle Mckeon is a 22-year-old female with a medical history significant for type 1 diabetes mellitus, admitted with fevers and chills, noted to have suprapubic folliculitis leading to cellulitis and possible sepsis and diabetic ketoacidosis. For the last 24 hours, the patient continues to have pain in the lower abdomen. She grades the pain as 3 to 4/10 in intensity, aggravated on palpation and movement, relieved with pain medication, nonradiating type of pain, not associated with any nausea or vomiting. Denies any chest pain. No shortness of breath, and she was continued on IV fluids. REVIEW OF SYSTEMS: Cardiovascular, respiratory, gastrointestinal, neurology, constitutional were all evaluated. PHYSICAL EXAMINATION: Vital Signs: Temperature of 98.3, pulse of 96, blood pressure 103/51, respiratory rate of 20, and saturating at 97% on room air. General Appearance: The patient is well oriented to time, place, and person. Follows commands spontaneously. Cardiovascular System: S1 and S2 heard with normal intensity. No gallops. Respiratory System: Clear to auscultation bilaterally. No wheeze. No crepitations. Abdomen: Soft. Bowel sounds positive. Nontender. No rigidity. The patient is noted to have mild wound noted on the suprapubic region on the right side over the right groin area. No active secretion noted. Mild erythema and tenderness noted. Extremities: No edema in the bilateral lower extremities. Neurology: No gross focal neurological deficit. MEDICATIONS: Reviewed. Continue with: 1. Tylenol 650 every 4 hours as needed for pain and fever. 2. Calcium carbonate 500 mg twice a day. 3. Docusate sodium 100 mg twice a day as needed. 4. Lovenox 40 mg subcutaneous daily. 5. NovoLog supplemental scale. 6. Levemir 50 units at bedtime schedule. 7. Imodium 2 mg every 4 hours as needed for diarrhea. 8. Milk of magnesia 30 mL every 12 hours as needed for constipation. 9. Reglan 10 mg IV push every 8 hours as needed for nausea. 10.Morphine 2 mg IV q.2 hourly. 11.Zofran 4 mg IV every 4 hours as needed for nausea and vomiting. 12.Percocet 5/325 mg every 4 hours as needed for pain. 13.Zosyn, pharmacy to dose. 14.Potassium chloride 20 mEq three times a day. 15.Neutra-Phos 500 mg three times a day. 16.Ambien 5 mg at bedtime. LABORATORY DATA: Reviewed. 1. WBC 13.7, hemoglobin 10.5, hematocrit 34.4, and platelet count 181. 2. Sodium 140, potassium 3.7, chloride 116, bicarb 15. BUN 12, creatinine 1, glucose 126. 3. Calcium 7, phosphorus 3.3, magnesium 1.8. ASSESSMENT: 1. Diabetic ketoacidosis, resolved. 2. Type 1 diabetes mellitus. 3. Possible sepsis. 4. Urinary tract infection, secondary to Escherichia coli. 5. Cellulitis, secondary to Staphylococcus aureus, oxacillin susceptible. 6. Hyponatremia, resolved. 7. Hypokalemia, resolved. 8. Hypomagnesemia, resolved. 9. Hypophosphatemia, resolved. 10.Hypocalcemia. 11.Iron deficiency anemia, requiring IV iron. PLAN: 1. Diabetic ketoacidosis, resolved. The patient is back to normal. She is currently on subcutaneous insulin. Try to avoid any hypoglycemic episode. Have her on hypoglycemic protocol. Continue with the Levemir for now. Check her fingersticks every 4 hours. 2. Cellulitis. This seems to be improving. She was noted to have folliculitis involving the right suprapubic region. She is currently on IV antibiotic. Wound culture positive for Staph aureus but oxacillin susceptible, so we will discontinue the vancomycin, continue with Zosyn. 3. Urinary tract infection. She is noted to have E. coli in the urine culture, sensitive to Zosyn, so continue with Zosyn for now. 4. Electrolyte imbalance. Her electrolytes seem to be improved. Her hypokalemia, hypomagnesemia, hyponatremia, and hypophosphatemia are resolved. She continues to have low calcium. She is currently on calcium carbonate. Continue the same. 5. Anemia. She is noted to have iron deficiency anemia. She denies any hematemesis, hematochezia, or melenic stools. Started on IV iron. We will switch her to oral iron at the time of discharge. 6. Generalized debility. The patient continues to feel weak and tired. This is mainly from underlying sepsis and also from DKA. The patient will be encouraged to ambulate around. 7. Type 1 diabetes mellitus, improved. The patient was noncompliant with her medical treatment. She has not been using insulin for the last few months. The patient is educated about being compliant with medications. Continue with the Levemir for now. [facility] /[id number]
[2017-04-03] MEDS: Sodium Chloride 0.45% 1,000 ML IV SCH (13:52)
[2017-04-03] MEDS: Iron Sucrose Complex 100 MG in Sodium Chloride 0.9% 100 ML IV SCH ×2 (19:01→19:05)
[2017-04-03] MEDS: Insulin Detemir 100 Units/ML 3 ML Pen SUBCUT SCH (21:16)
[2017-04-03] MEDS: Acetaminophen/oxyCODONE 325-5 MG Tab PO PRN (21:30)
[2017-04-04] MEDS: Piperacillin/Tazobactam 3.375 GM in Sodium Chloride 0.9% 100 ML IV SCH ×5 (00:16→23:34)
[2017-04-04] MEDS: Sodium Chloride 0.45% 1,000 ML IV SCH (02:02)
[2017-04-04] MEDS: Acetaminophen/oxyCODONE 325-5 MG Tab PO PRN ×4 (05:22→17:59)
[2017-04-04] MEDS: Pantoprazole 40 MG Tab.CR PO SCH (05:22)
[2017-04-04 06:35] LABS: CHLORIDE,CL 110 mmol/L (101-111); SODIUM,NA 141 mmol/L (135-145)
[2017-04-04] MEDS: Insulin Aspart 100 Units/ML 3 ML Pen SUBCUT SCH ×4 (07:48→21:24)
[2017-04-04] MEDS: Calcium Carbonate 500 MG Tab.Chew PO SCH ×2 (08:49→17:08)
[2017-04-04] MEDS: Enoxaparin 40 MG/0.4 ML Syringe SUBCUT SCH (08:49)
[2017-04-04] MEDS: Potassium Chloride 10 MEQ Tab.ER PO SCH ×3 (08:49→17:08)
[2017-04-04] MEDS: Phosphorus #1 250 MG Tab PO SCH ×2 (08:49→21:21)
[2017-04-04] MEDS: Acetaminophen 325 MG Tab PO PRN (12:05)
--- NOTE | 2017-04-04 12:49 | PN ---
DATE: 04/04/2017 Ms. Giselle Mckeon is a 22-year-old female with medical history significant for type 1 diabetes mellitus, admitted with fevers and chills. Noted to have suprapubic folliculitis and cellulitis along with urinary tract infection and diabetic ketoacidosis. For the last 24 hours, the patient is continued on IV fluids. She was noted to have loose stools. She denies any chest pain. No shortness of breath. Complains of mild abdominal discomfort. No nausea. No vomiting. REVIEW OF SYSTEMS: Cardiovascular, respiratory, gastrointestinal, neurology, constitutional were all evaluated. PHYSICAL EXAMINATION: Vital Signs: Temperature of 98.8, pulse of 95, blood pressure 117/83, respiratory rate of 20, and saturating at 99% on room air. General Appearance: Patient is well oriented to time, place, and person. Follows commands spontaneously. Cardiovascular System: S1, S2 heard with normal intensity. No gallops. Respiratory: Clear to auscultation bilaterally. No wheeze. No crepitations. Abdomen: Soft. Bowel sounds positive. Nontender. No rigidity. Extremities: No edema in bilateral lower extremities. Neurology: No gross focal neurological deficit. MEDICATIONS: Reviewed. Continue with: 1. Tylenol 650 every 4 hours as needed for pain and fever. 2. Tums 500 mg twice a day. 3. Docusate sodium 100 mg twice a day as needed for constipation. 4. Lovenox 40 mg subcutaneous daily. 5. NovoLog supplemental scale. 6. Levemir 50 units subcu at bedtime. 7. Iron sucrose 100 mg daily for next 2 days. 8. Imodium 2 mg every 4 hours as needed for diarrhea. 9. Magnesium oxide 250 mg twice a day. 10.Morphine 2 mg IV every 2 hours as needed for pain. 11.Percocet 5/325 mg every 4 hours as needed for pain. 12.Zosyn, pharmacy to dose. 13.Potassium chloride 20 mEq 3 times a day. 14.Ambien 5 mg at bedtime as needed for sleep. 15.Neutra-Phos 500 mg twice a day. LABORATORY DATA: Reviewed. Sodium 141, potassium 3.9, chloride 110, bicarb 20, BUN 7, creatinine 0.9. Calcium 7.7, phosphorus 4.1, magnesium 1.7. ASSESSMENT: 1. Diabetic ketoacidosis, resolved. 2. Cellulitis, improved on antibiotics. 3. Urinary tract infection, improving on antibiotics. 4. Possible sepsis, urine culture positive for E. coli and wound culture positive for Staph aureus, oxacillin susceptible. 5. Hyponatremia, resolved. 6. Hypokalemia, resolved. 7. Hypomagnesemia. 8. Hypophosphatemia. 9. Hypocalcemia. 10.Iron-deficiency anemia requiring IV iron. PLAN: 1. Cellulitis. The patient noted to have cellulitis involving the suprapubic region on the right side, which seems to be improving at this time. No further drainage noted. Continue with current IV antibiotic with Zosyn. 2. Urinary tract infection. She is noted to have E. coli, susceptible to Zosyn. Continue the same. 3. Diabetic ketoacidosis, resolved. The patient is currently on subcutaneous insulin. Continue the same. 4. Type 1 diabetes mellitus. The patient is on Levemir. She is noted to have hypoglycemic episodes at times, so we will decrease the Levemir to 40 units subcu at bedtime to avoid any further hypoglycemic episodes. Have her on supplemental scale insulin. The patient will benefit from medical educator as an outpatient. The patient is educated about the importance of being compliant with medications and insulin, which she understands and verbalized the same. 5. Iron-deficiency anemia. The patient's hemoglobin stabilized at 10.5, patient is continued on IV iron, continue the same. She denies any hematemesis, hematochezia, or melenic stools. 6. Possible discharge in a.m. if she remains hemodynamically stable. [facility] /[id number]
[2017-04-04] MEDS: Sodium Chloride 0.9% 10 ML Syringe FLUSH PRN ×5 (17:26→23:29)
[2017-04-04] MEDS: Iron Sucrose Complex 100 MG in Sodium Chloride 0.9% 100 ML IV SCH (17:26)
[2017-04-04] MEDS: Morphine 2 MG/ML Syringe IVPUSH PRN (20:24)
[2017-04-04] MEDS: Insulin Detemir 100 Units/ML 3 ML Pen SUBCUT SCH (21:27)
[2017-04-05] MEDS: Sodium Chloride 0.9% 10 ML Syringe FLUSH PRN ×6 (00:42→20:59)
[2017-04-05] MEDS: Morphine 2 MG/ML Syringe IVPUSH PRN ×5 (00:54→21:53)
[2017-04-05] MEDS: Pantoprazole 40 MG Tab.CR PO SCH (05:14)
[2017-04-05] MEDS: Piperacillin/Tazobactam 3.375 GM in Sodium Chloride 0.9% 100 ML IV SCH ×3 (05:22→21:01)
[2017-04-05] MEDS: Insulin Aspart 100 Units/ML 3 ML Pen SUBCUT SCH ×4 (08:03→21:50)
[2017-04-05] MEDS: Acetaminophen/oxyCODONE 325-5 MG Tab PO PRN (08:04)
[2017-04-05] MEDS: Phosphorus #1 250 MG Tab PO SCH (08:50)
[2017-04-05] MEDS: Calcium Carbonate 500 MG Tab.Chew PO SCH (08:50)
[2017-04-05] MEDS: Enoxaparin 40 MG/0.4 ML Syringe SUBCUT SCH (08:50)
[2017-04-05] MEDS: Potassium Chloride 10 MEQ Tab.ER PO SCH (08:50)
[2017-04-05] MEDS ORDERED: Levofloxacin/Dextrose 5%-Water 750 MG in Premix Bag 1 BAG IV ONE (10:39)
[2017-04-05 11:20] LABS: CHLORIDE,CL 103 mmol/L (101-111); SODIUM,NA 137 mmol/L (135-145)
[2017-04-05] MEDS: Ondansetron 4 MG/2 ML SDV IVPUSH PRN ×2 (12:30→18:27)
--- NOTE | 2017-04-05 13:26 | PN ---
DATE: 04/05/2017 SUBJECTIVE: Ms. Giselle Carlisle is a 22-year-old female with medical history significant for type 1 diabetes mellitus, admitted with folliculitis, cellulitis leading to sepsis and diabetic ketoacidosis, also having underlying urinary tract infection. For the last 24 hours, the patient continues to have abdominal pain, mostly in the right groin site. She had formed stools this morning. She denies any chest pain. No shortness of breath. She is off the IV fluids at this time. She denies any nausea or vomiting, but feels nauseated at times. REVIEW OF SYSTEMS: Cardiovascular, respiratory, gastrointestinal, neurology, constitutional were all evaluated. PHYSICAL EXAMINATION: Vital Signs: Temperature of 98.2, pulse of 96, blood pressure of 138/92, respiratory rate of 20, and saturating at 91% on room air. General Appearance: The patient is well oriented to time, place, and person. Follows commands spontaneously Cardiovascular System: S1 and S2 heard with normal intensity. No gallops. Respiratory System: Clear to auscultation bilaterally. No wheeze. No crepitations. Abdomen: Slightly distended. Mild tenderness to the lower abdomen. Skin: Erythema and tenderness noted around the right groin site where she has the folliculitis. Mild bulging noted at the wound site. No active secretions noted at this time. Extremities: Mild edema in bilateral lower extremities. Neurology: No gross focal neurological deficit. MEDICATIONS: Reviewed. Continue with: 1. Tylenol 650 every 4 hours as needed for pain and fever. 2. Tums 500 mg twice a day. 3. Docusate sodium 100 mg twice a day as needed for constipation. 4. Lovenox 40 mg subcutaneous daily. 5. Levemir 40 units subcu at bedtime. 6. NovoLog supplemental scale. 7. Levaquin 750 mg IV 1 time dose. 8. Imodium 2 mg every 4 hours as needed for diarrhea. 9. Magnesium oxide 250 mg twice a day. 10.Reglan 10 mg IV push every 8 hours as needed for nausea. 11.Morphine 2 mg IV q.2 hours for pain. 12.Percocet 5/325 mg every 4 hours as needed for pain. 13.Protonix 40 mg daily. 14.Zosyn, pharmacy to dose. 15.Potassium chloride 20 mEq 3 times a day. 16.Ambien 5 mg at bedtime as needed for sleep. LABORATORY DATA: Sodium 137, potassium 5, chloride 103, bicarb 24, BUN 6, creatinine 0.8, and glucose 105. Calcium 8.3, phosphorus 4.8, magnesium 1.6. ASSESSMENT: 1. Bacteremia with possible sepsis with Staph aureus. 2. Cellulitis with possible abscess. 3. Urinary tract infection with Escherichia coli. 4. Acute hyponatremia, resolved. 5. Acute hypokalemia, resolved. 6. Acute hypophosphatemia, resolved. 7. Hypomagnesemia. 8. Type 1 diabetes mellitus. 9. Hypocalcemia. 10.Iron-deficiency anemia requiring IV iron. PLAN: 1. Bacteremia with possible sepsis. The patient's blood cultures are positive 1/2 for staph aureus, oxacillin susceptible. The patient has been on IV antibiotic with Zosyn. She completed 4 days of IV vancomycin. We discontinued the vancomycin, continue with Zosyn. She is getting Zosyn every 6 hourly. We will transition her to IV Levaquin as both E. coli and Staph aureus are susceptible to Levaquin. We will closely follow the patient. We will repeat the blood cultures today, make sure her blood cultures are negative at this time. Closely follow. 2. Cellulitis with possible abscess. The patient had folliculitis at the time of admission, requiring incision and drainage, but today her abdomen seems to be little bit distended and bloated around the folliculitis site. Unsure if patient has any deep-seated abscess. We will order for a CT scan of the abdomen and pelvis, and we will closely follow. Continue with current IV antibiotic regimen. 3. Urinary tract infection. Her urine culture was positive for E. coli, susceptible to Levaquin and Zosyn. Continue with current IV antibiotic regimen. 4. Diabetic ketoacidosis, resolved, anion gap closed. Her blood sugars were more in acceptable range. 5. Type 1 diabetes mellitus. The patient has been on Levemir 50 units, decrease the Levemir to 40 units subcutaneous daily. We will continue the same. Try to avoid any hypoglycemic episodes. Have her on hypoglycemic protocol. 6. Electrolyte imbalance. The patient was noted to have acute hyponatremia, hypokalemia, hypomagnesemia, hypophosphatemia at the time of admission, seems to be much improved. We will decrease the potassium chloride and potassium phosphate dosing. We will recheck a basic metabolic panel in a.m. 7. Iron-deficiency anemia. The patient has received IV iron on this admission. Her anemia seems to be improved, continue the same. She has iron-deficiency anemia. She denies any hematemesis, hematochezia, or melenic stools at this time. 8. Discharge plans ongoing. Discharge delayed secondary to new development of bacteremia with possible sepsis requiring prolonged IV course of IV antibiotics. Also we will follow up on the blood culture reports. [facility] /[id number]
[2017-04-05] MEDS ORDERED: Iopamidol 612 MG/ML 75 ML Bottle IVPUSH ONE (13:43)
--- NOTE | 2017-04-05 14:54 | CT ---
Clinical history: 22-year-old 129 pound diabetic female who hasn't taken medication since December and re cently hospitalized with diabetic ketoacidosis (infected suprapubic "boil", right of midline). Scan technique: Volume acquisition of data abdomen and pelvis obtained without oral contrast but duri ng intravenous infusion 75 cc nonionic Isovue contrast while patient was lying supine on the Siemens multi slice scanner [place], [place]. All data archived in the PACS sy [place] for storage, reformatting and study. Interpretation: Abnormal. 1. *Large dependent subpulmonic pleural effusions with underlying lower lobe atelectasis and/or pneum onic infiltrates. 2. Normal cardiac silhouette. No pericardial effusion. Normal caliber aortoiliac vessels. 3. Gallbladder, liver, stomach, spleen, pancreas and adrenal glands unremarkable. Normal reniform siz e axis and configuration without sign of cortical inflammation, mass, nephrolithiasis or obstructive uropathy (pyelocaliectasis). Normal urinary bladder. 4. Normal vascular uterus right of midline. Tiny physiologic cysts both ovaries. (Small amount free f luid cul-de-sac, posteriorly) 5. *Subtle subcutaneous inflammatory "dirty" fat located to the right of the pubic symphysis. Lymph n odes groin. No abscess. 6. Lung linear collection of subcutaneous fluid posteriorly from a plane through L1 down through L4 ( dependent edema?). 7. No abdominal mass lesion, mesenteric/retroperitoneal lymphadenopathy, signs of mechanical bowel ob struction or free air.
[2017-04-05] MEDS: Acetaminophen 325 MG Tab PO PRN (15:58)
[2017-04-05] MEDS ORDERED: Furosemide 40 MG/4 ML VIAL IVPUSH ONE (16:15)
[2017-04-05] MEDS: diphenhydrAMINE 25 MG Tab PO PRN (18:28)
[2017-04-05] MEDS: Docusate Sodium 100 MG Cap PO PRN (18:28)
[2017-04-05] MEDS: Promethazine 25 MG/ML SDV IM PRN (19:52)
[2017-04-05] MEDS ORDERED: Insulin Detemir 100 Units/ML 3 ML Pen SUBCUT ONE (21:12)
[2017-04-05] MEDS: Acetaminophen 650 MG Supp RECTAL PRN (21:36)
[2017-04-05] MEDS: Magnesium Hydroxide 400 MG/5 ML Susp 30 ML Cup PO PRN (21:56)
[2017-04-05] MEDS: Insulin Detemir 100 Units/ML 3 ML Pen SUBCUT SCH (22:16)
[2017-04-06] MEDS: diphenhydrAMINE 25 MG Tab PO PRN ×2 (00:32→16:23)
[2017-04-06] MEDS: Acetaminophen/oxyCODONE 325-5 MG Tab PO PRN ×3 (00:44→20:14)
[2017-04-06] MEDS: Sodium Chloride 0.9% 10 ML Syringe FLUSH PRN ×6 (01:12→23:28)
[2017-04-06] MEDS: Piperacillin/Tazobactam 3.375 GM in Sodium Chloride 0.9% 100 ML IV SCH ×5 (01:15→23:30)
[2017-04-06] MEDS: Acetaminophen 325 MG Tab PO PRN ×2 (02:06→16:23)
[2017-04-06] MEDS: Pantoprazole 40 MG Tab.CR PO SCH (05:46)
[2017-04-06 07:04] LABS: CHLORIDE,CL 98 mmol/L (101-111); SODIUM,NA 139 mmol/L (135-145)
[2017-04-06] MEDS ORDERED: Calcium Carbonate 500 MG Tab.Chew PO SCH (08:00)
[2017-04-06] MEDS: Insulin Aspart 100 Units/ML 3 ML Pen SUBCUT SCH ×4 (08:11→21:25)
[2017-04-06] MEDS ORDERED: Phosphorus #1 250 MG Tab PO SCH (09:00)
[2017-04-06] MEDS ORDERED: Furosemide 20 MG Tab PO ONE (10:56)
[2017-04-06] MEDS: Potassium Chloride 10 MEQ Tab.ER PO SCH (10:56)
[2017-04-06] MEDS: Enoxaparin 40 MG/0.4 ML Syringe SUBCUT SCH (10:57)
--- NOTE | 2017-04-06 11:57 | PN ---
DATE: 04/06/2017 Ms. Maylin Mckeon is a 22-year-old female with medical history significant for type 1 diabetes mellitus, noncompliance with medical treatment plan admitted with folliculitis and cellulitis leading to sepsis and diabetic ketoacidosis. Also noted to have underlying urinary tract infection. For the last 24 hours, the patient was noted to have temperature overnight. She is also noted to have low blood sugars this morning. She has been requesting for IV morphine throughout the night and declining to take any oral pills if she did not receive any morphine. She denies any chest pains this morning. Her breathing seems to be improved. She continues to have some mild abdominal discomfort which is mostly in the lower abdomen. She denies any headaches or changes in the vision. REVIEW OF SYSTEMS: Cardiovascular, respiratory, gastrointestinal, neurology, constitutional were all evaluated. PHYSICAL EXAMINATION: Vital Signs: Temperature of 98.8, pulse of 98, blood pressure 111/69, respiratory rate of 20, and saturating at 98% on room air. General Appearance: The patient is well oriented to time, place, and person. Follows commands spontaneously. Cardiovascular System: S1, S2 heard with normal intensity. No gallops. Respiratory System: Clear to auscultation bilaterally except for decreased breath sounds at the bases. No wheezes. Abdomen: Soft. Bowel sounds positive. Nontender. No rigidity. Extremities: No edema in bilateral lower extremities. Neurology: No gross focal neurological deficit. MEDICATIONS: Reviewed. Continue with: 1. Tylenol 650 every 4 hours as needed for pain and fever. 2. Benadryl 25 mg 4 times a day as needed for itching. 3. Docusate sodium 100 mg twice a day as needed for constipation. 4. Lovenox 40 mg subcutaneous daily. 5. Lasix 20 mg oral x1 dose now. 6. Levemir 26 units at bedtime. 7. Imodium 2 mg every 4 hours as needed for diarrhea. 8. Magnesium oxide 500 mg twice a day. 9. Zofran 4 mg IV push every 4 hours as needed for nausea and vomiting. 10.Percocet 5/325 mg 1 tablet every 4 hours as needed for pain. 11.Zosyn, pharmacy to dose. 12.Potassium chloride 20 mEq daily. 13.Ambien 5 mg at bedtime as needed for sleep. LABORATORY DATA: Reviewed. Sodium 139, potassium 4.2, chloride 98, bicarb 28, anion gap 17.2, BUN 10, creatinine 1, glucose 53, calcium 8.2, phosphorus 5.1, and magnesium 1.7. Microbiology, the patient's wound culture positive for Staph aureus, urine culture positive for E. coli, and blood cultures 1/2 drawn on March 31 is positive for Staph aureus and repeat blood cultures on April 05 shows no growth so far. ASSESSMENT: 1. Bacteremia with possible sepsis from Staphylococcus aureus. 2. Cellulitis involving the right suprapubic region. 3. Urinary tract infection with Escherichia coli. 4. Type 1 diabetes mellitus. 5. Diabetic ketoacidosis, resolved. 6. Hyponatremia, resolved. 7. Hypokalemia, resolved. 8. Hypophosphatemia, resolved. 9. Hypomagnesemia. 10.Pleural effusion as evidenced on the CT scan. 11.Iron-deficiency anemia. PLAN: 1. Pleural effusion. The patient is noted to have bilateral pleural effusion noted on the CT scan of the abdomen and pelvis done yesterday to rule out possible intraabdominal abscess. Her pleural effusion is mainly resulting from fluid overload status where she got fluid boluses upon admission to the hospital. She did receive 40 mg of IV Lasix yesterday. We will give her 20 mg oral Lasix today and we will closely follow. Her shortness of breath has improved. 2. Sepsis. The patient was noted to have sepsis with Staph aureus with bacteremia. The patient is currently on Zosyn. We tried to switch her to IV Levaquin, but after starting Levaquin, she complained of mild itching, so we discontinued the Levaquin. We will continue with Zosyn for now. Repeat blood culture shows no growth so far. We will closely follow the repeat blood cultures. Given her bacteremia and possible sepsis, the patient would benefit from 10-14 days of IV antibiotics. She has completed around 6 days of IV antibiotics so far. 3. Type 1 diabetes mellitus, uncontrolled. The patient continues to have low blood sugars. She has poor oral intake. The patient is encouraged to eat well. Decrease the Levemir to 26 units to avoid any hypoglycemic episodes. Have her on hypoglycemic protocol. 4. Electrolyte imbalance. The patient was noted to have hyponatremia, hypokalemia, and hypophosphatemia which are improved. She continues to have hypomagnesemia. Continue with magnesium oxide supplement. Recheck a basic metabolic panel along with magnesium and phosphate in a.m. 5. Diabetic ketoacidosis, resolved. 6. Iron-deficiency anemia. The patient has received IV iron on this admission. Her hemoglobin has improved. She denied any hematemesis, hematochezia, or melenic stools. Closely follow. 7. Discharge plans ongoing. 8. We will discontinue the IV morphine. We will continue with oral Percocet for pain control. [facility] /[id number]
[2017-04-06] MEDS: Insulin Detemir 100 Units/ML 3 ML Pen SUBCUT SCH (21:21)
[2017-04-06] MEDS: Magnesium Hydroxide 400 MG/5 ML Susp 30 ML Cup PO PRN (21:33)
[2017-04-07] MEDS: Acetaminophen/oxyCODONE 325-5 MG Tab PO PRN ×4 (00:18→21:43)
[2017-04-07] MEDS ORDERED: amLODIPine 5 MG Tab PO ONE (00:36)
[2017-04-07] MEDS: Sodium Chloride 0.9% 10 ML Syringe FLUSH PRN ×6 (05:24→18:12)
[2017-04-07] MEDS: Piperacillin/Tazobactam 3.375 GM in Sodium Chloride 0.9% 100 ML IV SCH ×3 (05:27→17:28)
[2017-04-07] MEDS: Pantoprazole 40 MG Tab.CR PO SCH (05:37)
[2017-04-07 06:58] LABS: CHLORIDE,CL 93 mmol/L (101-111); SODIUM,NA 134 mmol/L (135-145)
[2017-04-07] MEDS: Insulin Aspart 100 Units/ML 3 ML Pen SUBCUT SCH ×4 (08:16→21:46)
[2017-04-07] MEDS: Enoxaparin 40 MG/0.4 ML Syringe SUBCUT SCH (08:17)
[2017-04-07] MEDS: Potassium Chloride 10 MEQ Tab.ER PO SCH (08:17)
[2017-04-07] MEDS: Lisinopril 10 MG Tab PO SCH (14:53)
--- NOTE | 2017-04-07 14:55 | PN ---
DATE: 04/07/2017 HISTORY OF PRESENT ILLNESS: Giselle is a 22-year-old female who is a type 1 diabetic. She presented to the emergency room and was found to be in DKA with a blood sugar of 661. She was admitted for further management. She was also found to have a urinary tract infection and cultures were positive for E. coli. She had an abscess in the right pubic area. This probably started as a folliculitis and she said she squeezed at it. The culture from this grew sensitive Staph aureus. She also had 1 out 4 of her original bottles also positive for sensitive Staph aureus. Since that time, 2 further sets of blood cultures have been drawn and they remain without growth after 2 days. At this time, Giselle continues on Zosyn 3.375 g IV every 6 hours. She is receiving enoxaparin for VTE prophylaxis. She is on scheduled Levemir and sliding scale NovoLog. Review of her clinical data shows that she is drinking adequate fluids she is voiding and moving her bowels. She is tolerating 100% of her meals. Overnight, I received a call from the nursing staff. Giselle's blood pressure was noted to be elevated with systolics in the 150s and diastolics slightly over 100. Various readings 158/108, 152/102, 153/104. It is unclear if she had been on any type of antihypertensive prior to admission, but we do know that she had not taken her medications for the last 3-5 months. She was started on amlodipine 5 mg last evening with improved blood pressure this morning of 126/77. PHYSICAL EXAMINATION: General: She is seated comfortably in her recliner. She has been up and ambulatory prior to that. She voices no new concerns or complaints. Vital Signs: Blood pressure was improved at 126/77, pulse 108, respiratory rate 16, oxygen saturation 100% on room air, and she was afebrile. HEENT: Unremarkable. Chest: Showed clear bilateral breath sounds. Heart: Showed regular rate and rhythm. Abdomen: Soft and benign. Extremities: Showed the calves to be soft and nontender with no edema. Skin: Examination of the area of the abscess on the right side of the pubic area was examined, it is flat. There is granulation tissue covering it. There is no surrounding redness or induration. We will continue the present management. The goal is to complete 10-14 days of IV antibiotics and this would be day 7. We will continue her on lisinopril 10 mg daily for blood pressure control as well as renal protection. No other changes are made. [facility] /[id number] MTDD
[2017-04-07] MEDS: Acetaminophen 325 MG Tab PO PRN (17:29)
[2017-04-07] MEDS: Insulin Detemir 100 Units/ML 3 ML Pen SUBCUT SCH (21:45)
[2017-04-08] MEDS: Piperacillin/Tazobactam 3.375 GM in Sodium Chloride 0.9% 100 ML IV SCH ×4 (00:01→18:03)
[2017-04-08] MEDS: Acetaminophen/oxyCODONE 325-5 MG Tab PO PRN ×5 (02:05→20:00)
[2017-04-08] MEDS: Pantoprazole 40 MG Tab.CR PO SCH (06:00)
[2017-04-08] MEDS: Insulin Aspart 100 Units/ML 3 ML Pen SUBCUT SCH ×4 (08:26→22:10)
[2017-04-08] MEDS: Potassium Chloride 10 MEQ Tab.ER PO SCH (08:56)
[2017-04-08] MEDS: Lisinopril 10 MG Tab PO SCH (08:57)
[2017-04-08] MEDS: Enoxaparin 40 MG/0.4 ML Syringe SUBCUT SCH (08:59)
--- NOTE | 2017-04-08 09:32 | PN ---
DATE: 04/08/2017 SUBJECTIVE: The patient this morning is doing fairly well. She denies any significant ongoing complaints. She denies any chest pain, shortness of breath, abdominal pain, nausea, or vomiting. OBJECTIVE: Vital Signs: Blood pressure is 123/72, pulse of 79, respirations of 18, and temperature of 98.7. Heart: Regular rate and rhythm. Normal S1 and S2. No gallops. No rubs. Lungs: Equal bilaterally. No crackles. No wheezing. Abdomen: Soft and nontender. Extremities: Negative for any significant pedal edema. No calf tenderness. LAB WORKUP: This morning, hemoglobin A1c is 15.4. MEDICATIONS: Reviewed. PLAN: We will continue with her present management, and we will continue with 3 more days of IV Zosyn. [facility] /[id number]
[2017-04-08] MEDS: Magnesium Hydroxide 400 MG/5 ML Susp 30 ML Cup PO PRN (12:32)
[2017-04-08] MEDS: Docusate Sodium 100 MG Cap PO PRN (12:33)
[2017-04-08] MEDS: Sodium Chloride 0.9% 10 ML Syringe FLUSH PRN ×3 (13:43→23:59)
[2017-04-08] MEDS: Insulin Detemir 100 Units/ML 3 ML Pen SUBCUT SCH (22:10)
[2017-04-09] MEDS: Acetaminophen/oxyCODONE 325-5 MG Tab PO PRN ×5 (00:14→23:06)
[2017-04-09] MEDS: Sodium Chloride 0.9% 10 ML Syringe FLUSH PRN ×4 (05:58→19:02)
[2017-04-09] MEDS: Piperacillin/Tazobactam 3.375 GM in Sodium Chloride 0.9% 100 ML IV SCH ×5 (05:59→18:23)
[2017-04-09] MEDS: Pantoprazole 40 MG Tab.CR PO SCH (06:04)
[2017-04-09 07:07] LABS: CHLORIDE,CL 101 mmol/L (101-111); SODIUM,NA 138 mmol/L (135-145)
[2017-04-09] MEDS: Potassium Chloride 10 MEQ Tab.ER PO SCH (08:27)
[2017-04-09] MEDS: Lisinopril 10 MG Tab PO SCH (08:27)
[2017-04-09] MEDS: Acetaminophen 325 MG Tab PO PRN ×2 (08:28→20:58)
[2017-04-09] MEDS: Enoxaparin 40 MG/0.4 ML Syringe SUBCUT SCH (08:28)
[2017-04-09] MEDS: Insulin Aspart 100 Units/ML 3 ML Pen SUBCUT SCH ×4 (09:52→20:54)
--- NOTE | 2017-04-09 10:05 | PN ---
DATE: 04/09/2017 SUBJECTIVE: The patient continues to do well. She still has some pain on the right suprapubic area, but the redness has improved and she denies any chest pain, shortness of breath, abdominal pain, nausea, vomiting, nor any other complaints. Stool C. diff is still pending. OBJECTIVE: Vital Signs: Blood pressure is 135/90, pulse of 82, respirations 20, temperature of 98.3. Heart: Regular rate and rhythm. Normal S1 and S2. No gallops. No rubs. Lungs: Equal bilaterally. No crackles. No wheezing. Abdomen: Soft and nontender. Extremities: Negative for any pedal edema. No calf tenderness. LABORATORY WORKUP: This morning, WBC 7.9, hemoglobin is 8.3, hematocrit is 27.8, platelet is 441. Chem-6, glucose is 120. The rest of the panel is unremarkable. PLAN: We will continue with her present management and continue with IV Zosyn. We will await the results of the C. diff toxin. [facility] /[id number]
[2017-04-09] MEDS: Insulin Detemir 100 Units/ML 3 ML Pen SUBCUT SCH (20:56)
[2017-04-10] MEDS: Piperacillin/Tazobactam 3.375 GM in Sodium Chloride 0.9% 100 ML IV SCH ×5 (00:04→23:42)
[2017-04-10] MEDS: Sodium Chloride 0.9% 10 ML Syringe FLUSH PRN ×7 (00:06→23:42)
[2017-04-10] MEDS: Pantoprazole 40 MG Tab.CR PO SCH (05:25)
[2017-04-10] MEDS: Acetaminophen/oxyCODONE 325-5 MG Tab PO PRN ×5 (05:25→23:57)
[2017-04-10] MEDS: Potassium Chloride 10 MEQ Tab.ER PO SCH (08:30)
[2017-04-10] MEDS: Lisinopril 10 MG Tab PO SCH (08:30)
[2017-04-10] MEDS: Insulin Aspart 100 Units/ML 3 ML Pen SUBCUT SCH ×4 (08:31→21:31)
[2017-04-10] MEDS: Enoxaparin 40 MG/0.4 ML Syringe SUBCUT SCH (08:31)
--- NOTE | 2017-04-10 09:51 | PN ---
DATE: 04/10/2017 SUBJECTIVE: The patient continues to do well. The patient's current complaint is just dry skin, but she denies any chest pain, shortness of breath, abdominal pain, nausea, vomiting. Lab workup this morning, glucose is 271. OBJECTIVE: Vitals Signs: Blood pressure is 125/71, pulse of 90, respirations 20, temperature of 98.1. Heart: Regular rate and rhythm. Normal S1 and S2. No gallops. No rubs. Lungs: Equal bilaterally. No crackles. No wheezing. Abdomen: Soft and nontender. Extremities: Negative for any pedal edema. No calf tenderness. MEDICATIONS: Reviewed. PLAN: We will continue with her current regimen and continue with IV Zosyn, and anticipate discharge in a.m. if she continues to do well. ADDENDUM: The patient's stool C. diff came back negative. [facility] /[id number]
[2017-04-10] MEDS ORDERED: Insulin Aspart 100 Units/ML 3 ML Pen SUBCUT ONE ×2 (17:09→21:00)
[2017-04-10] MEDS: Insulin Detemir 100 Units/ML 3 ML Pen SUBCUT SCH (21:18)
[2017-04-11] MEDS: Piperacillin/Tazobactam 3.375 GM in Sodium Chloride 0.9% 100 ML IV SCH ×3 (05:33→18:55)
[2017-04-11] MEDS: Sodium Chloride 0.9% 10 ML Syringe FLUSH PRN ×2 (05:33→23:59)
[2017-04-11] MEDS: Pantoprazole 40 MG Tab.CR PO SCH (05:36)
[2017-04-11] MEDS: Acetaminophen/oxyCODONE 325-5 MG Tab PO PRN ×4 (05:58→19:00)
[2017-04-11] MEDS: Lisinopril 10 MG Tab PO SCH (08:34)
[2017-04-11] MEDS: Potassium Chloride 10 MEQ Tab.ER PO SCH (08:34)
[2017-04-11] MEDS: Insulin Aspart 100 Units/ML 3 ML Pen SUBCUT SCH ×4 (08:35→21:44)
[2017-04-11] MEDS: Enoxaparin 40 MG/0.4 ML Syringe SUBCUT SCH (08:36)
--- NOTE | 2017-04-11 10:51 | PCM.PN ---
- General Info Date of Service: 04/11/17 Admission Dx/Problem (Free Text): Abdominal wall cellulitis. DKA Subjective Update: Patient stated that she is feeling better. However she is still complaining of right groin tenderness. She still admits chills but denies fever, nausea, vomiting, shortness breath, chest pain, any other symptoms or concern. - Patient Data Vitals - Most Recent: Last Vital Signs Temp 36.6 C 04/11/17 07:51 Pulse 81 04/11/17 07:51 Resp 20 04/11/17 07:51 BP 125/79 04/11/17 08:34 Pulse Ox 100 04/11/17 07:51 Weight - Most Recent: 58.513 kg I&O - Last 24 Hours: Intake & Output 04/10/17 04/11/17 04/11/17 22:59 06:59 14:59 Intake Total 107 1150 Balance 107 1150 Lab Results Last 24 Hours: Laboratory Results - last 24 hr 04/10/17 04/10/17 04/10/17 Range/Units 11:06 17:08 20:48 POC Glucose 363 H 447 H* > 500 H* (70-105) mg/dl 04/11/17 Range/Units 07:43 POC Glucose 286 H (70-105) mg/dl Thuan Results Last 24 Hours: Microbiology 04/05/17 10:47 Aerobic Blood Culture - Final Blood - Venous NO GROWTH AFTER 5 DAYS Anaerobic Blood Culture - Final NO GROWTH AFTER 5 DAYS 04/05/17 10:47 Aerobic Blood Culture - Final Blood - Venous - Lab Draw NO GROWTH AFTER 5 DAYS Anaerobic Blood Culture - Final NO GROWTH AFTER 5 DAYS Med Orders - Current: Current Medications Acetaminophen (Tylenol) 650 mg PO Q4H PRN PRN Reason: Pain (Mild 1-3)/fever Last Admin: 04/09/17 20:58 Dose: 650 mg Acetaminophen (Tylenol) 650 mg RECTAL Q4H PRN PRN Reason: Fever Greater Than 102 Last Admin: 04/05/17 21:36 Dose: 650 mg Diphenhydramine HCl (Benadryl) 25 mg PO QID PRN PRN Reason: Itching Last Admin: 04/06/17 16:23 Dose: 25 mg Docusate Sodium (Colace) 100 mg PO BID PRN PRN Reason: Constipation Last Admin: 04/08/17 12:33 Dose: 100 mg Enoxaparin Sodium (Lovenox) 40 mg SUBCUT DAILY [facility] Last Admin: 04/11/17 08:36 Dose: 40 mg Piperacillin Sod/Tazobactam (Sod 3.375 gm/ Sodium Chloride) 100 mls @ 200 mls/ hr IV Q6HR [facility] Last Infusion: 04/11/17 06:12 Dose: Infused Insulin Aspart (Novolog) 0 unit SUBCUT QIDACANDBED [facility] PRN Reason: Protocol Last Admin: 04/11/17 08:35 Dose: 6 units Insulin Detemir (Levemir) 26 unit SUBCUT BEDTIME [facility] Last Admin: 04/10/17 21:18 Dose: 26 units Lisinopril (Prinivil) 10 mg PO DAILY [facility] Last Admin: 04/11/17 08:34 Dose: 10 mg Loperamide HCl (Imodium) 2 mg PO Q4H PRN PRN Reason: Diarrhea Last Admin: 04/03/17 18:10 Dose: 2 mg Magnesium Hydroxide (Milk Of Magnesia) 30 ml PO Q12H PRN PRN Reason: Constipation Last Admin: 04/08/17 12:32 Dose: 30 ml Magnesium Oxide (Magnesium Oxide) 500 mg PO BIDM [facility] Last Admin: 04/11/17 08:34 Dose: 500 mg Metoclopramide HCl (Reglan) 10 mg IVPUSH Q8H PRN PRN Reason: Nausea Last Admin: 04/01/17 03:11 Dose: 10 mg Ondansetron HCl (Zofran) 4 mg IVPUSH Q4H PRN PRN Reason: Nausea/Vomiting Last Admin: 04/05/17 18:27 Dose: 4 mg Oxycodone/Acetaminophen (Percocet 325-5 Mg) 1 tab PO Q4H PRN PRN Reason: Pain (moderate 4-6) Last Admin: 04/11/17 05:58 Dose: 1 tab Pantoprazole Sodium (Protonix) 40 mg PO ACBREAKFAST [facility] Last Admin: 04/11/17 05:36 Dose: 40 mg Potassium Chloride (Klor-Con 10) 20 meq PO QAM [facility] Last Admin: 04/11/17 08:34 Dose: 20 meq Promethazine HCl (Phenergan) 25 mg IM Q8H PRN PRN Reason: Nausea Last Admin: 04/05/17 19:52 Dose: 25 mg Sodium Chloride (Saline Flush) 10 ml FLUSH ASDIRECTED PRN PRN Reason: Keep Vein Open Last Admin: 04/11/17 05:33 Dose: 10 ml Zolpidem Tartrate (Ambien) 5 mg PO BEDTIME PRN PRN Reason: Sleep Discontinued Medications Amlodipine Besylate (Norvasc) 5 mg PO ONETIME ONE Stop: 04/07/17 00:37 Last Admin: 04/07/17 00:46 Dose: 5 mg Calcium Carbonate/Glycine (Tums) 500 mg PO BIDM [facility] Last Admin: 04/05/17 08:50 Dose: 500 mg Calcium Carbonate/Glycine (Tums) 500 mg PO WITHBREAKFAST [facility] Last Admin: 04/06/17 11:06 Dose: Not Given Furosemide (Lasix) 40 mg IVPUSH NOW ONE Stop: 04/05/17 16:16 Last Admin: 04/05/17 16:23 Dose: 40 mg Furosemide (Lasix) 20 mg PO ONETIME ONE Stop: 04/06/17 10:57 Last Admin: 04/06/17 11:59 Dose: 20 mg Sodium Chloride (Normal Saline) 1,000 mls @ 999 mls/hr IV .BOLUS ONE Stop: 03/31/17 21:02 Last Admin: 03/31/17 20:28 Dose: 999 mls/hr Insulin Human Regular 100 unit (/ Sodium Chloride) 100 mls @ 5 mls/hr IV ASDIRECTED [facility]; 5 UNIT/HR PRN Reason: Protocol Last Infusion: 04/01/17 19:22 Dose: 0 unit/hr, 0 mls/hr Vancomycin HCl 1 gm/ Sodium (Chloride) 250 mls @ 167 mls/hr IV ONETIME ONE Stop: 03/31/17 22:27 Last Admin: 03/31/17 21:19 Dose: 167 mls/hr Piperacillin Sod/Tazobactam (Sod 3.375 gm/ Sodium Chloride) 100 mls @ 200 mls/ hr IV Q6H [facility] Last Infusion: 04/01/17 05:40 Dose: Infused Sodium Chloride (Normal Saline) 1,000 mls @ 75 mls/hr IV ASDIRECTED [facility] Last Admin: 04/02/17 23:42 Dose: 75 mls/hr Vancomycin HCl 0.75 gm/ Sodium (Chloride) 250 mls @ 166.667 mls/hr IV Q8H [facility] Last Admin: 04/01/17 05:47 Dose: 166.667 mls/hr Magnesium Sulfate 2 gm/ Premix 50 mls @ 25 mls/hr IV ONETIME ONE Stop: 04/01/17 11:46 Last Admin: 04/01/17 10:05 Dose: 25 mls/hr Vancomycin HCl 0.75 gm/ Sodium (Chloride) 250 mls @ 166.667 mls/hr IV Q8H [facility] Last Admin: 04/03/17 10:32 Dose: 166.667 mls/hr Sodium Chloride (Normal Saline) 1,000 mls @ 1,000 mls/hr IV .BOLUS ONE Stop: 04/01/17 12:47 Last Admin: 04/01/17 12:19 Dose: 1,000 mls/hr Vancomycin HCl 0.75 gm/ Sodium (Chloride) 250 mls @ 166.667 mls/hr IV Q18H [facility] Last Admin: 04/03/17 10:39 Dose: Not Given Iron Sucrose 100 mg/ Sodium (Chloride) 105 mls @ 400 mls/hr IV DAILY [facility] Stop: 04/05/17 13:03 Last Admin: 04/03/17 19:05 Dose: Not Given Iron Sucrose 100 mg/ Sodium (Chloride) 105 mls @ 400 mls/hr IV DAILY@1800 [facility] Last Admin: 04/04/17 17:26 Dose: 400 mls/hr Sodium Chloride (Sodium Chloride 0.45%) 1,000 mls @ 100 mls/hr IV ASDIRECTED [facility] Last Infusion: 04/04/17 06:31 Dose: 75 mls/hr Levofloxacin/Dextrose 750 mg/ (Premix) 150 mls @ 100 mls/hr IV ONETIME ONE Stop: 04/05/17 12:08 Last Admin: 04/05/17 11:34 Dose: 100 mls/hr Insulin Aspart (Novolog) 0 unit SUBCUT Q4H [facility] PRN Reason: Protocol Last Admin: 04/03/17 13:07 Dose: Not Given Insulin Aspart (Novolog) 0 unit SUBCUT QIDACANDBED [facility] PRN Reason: Protocol Last Admin: 04/10/17 17:17 Dose: Not Given Insulin Aspart (Novolog) 8 unit SUBCUT ONETIME ONE Stop: 04/10/17 17:10 Last Admin: 04/10/17 17:15 Dose: 8 units Insulin Aspart (Novolog) 14 unit SUBCUT ONETIME ONE Stop: 04/10/17 21:01 Last Admin: 04/10/17 21:20 Dose: 14 units Insulin Detemir (Levemir) 50 unit SUBCUT DAILY [facility] Last Admin: 04/01/17 10:05 Dose: Not Given Insulin Detemir (Levemir) 50 unit SUBCUT ONETIME ONE Stop: 04/01/17 03:44 Last Admin: 04/01/17 04:00 Dose: 50 units Insulin Detemir (Levemir) 50 unit SUBCUT DAILY [facility] Last Admin: 04/02/17 13:28 Dose: Not Given Insulin Detemir (Levemir) 50 unit SUBCUT BEDTIME [facility] Last Admin: 04/03/17 21:16 Dose: 50 units Insulin Detemir (Levemir) 40 unit SUBCUT BEDTIME [facility] Last Admin: 04/05/17 22:16 Dose: Not Given Insulin Detemir (Levemir) 32 unit SUBCUT ONETIME ONE Stop: 04/05/17 21:13 Last Admin: 04/05/17 21:51 Dose: 32 units Insulin Human Regular (Humulin R) 10 unit IV ONETIME ONE PRN Reason: Protocol Stop: 03/31/17 21:01 Last Admin: 03/31/17 21:11 Dose: 10 units Iopamidol (Isovue-300 (61%)) 75 ml IVPUSH ONETIME ONE Stop: 04/05/17 13:44 Last Admin: 04/05/17 14:13 Dose: 75 ml Lidocaine HCl (Xylocaine-Mpf 1%) 30 ml INJECT ONETIME ONE Stop: 03/31/17 20:22 Last Admin: 03/31/17 20:28 Dose: 30 ml Magnesium Oxide (Magnesium Oxide) 250 mg PO BIDM [facility] Last Admin: 04/05/17 08:50 Dose: 250 mg Morphine Sulfate (Morphine) 2 mg IVPUSH ONETIME ONE Stop: 03/31/17 21:51 Last Admin: 03/31/17 22:00 Dose: 2 mg Morphine Sulfate (Morphine) 2 mg IVPUSH Q2H PRN PRN Reason: Pain (severe 7-10) Last Admin: 04/05/17 21:53 Dose: 2 mg Potassium Chloride (Klor-Con 10) 20 meq PO TIDMEALS [facility] Last Admin: 04/05/17 08:50 Dose: 20 meq Sodium Phosphate (Neutra-Phos) 500 mg PO TID [facility] Last Admin: 04/04/17 08:49 Dose: 500 mg Sodium Phosphate (Neutra-Phos) 500 mg PO BID [facility] Last Admin: 04/05/17 08:50 Dose: 500 mg Sodium Phosphate (Neutra-Phos) 250 mg PO QAM [facility] Last Admin: 04/06/17 11:06 Dose: Not Given Vancomycin HCl (Pharmacy To Dose - Vancomycin) 1 dose .XX ASDIRECTED [facility] - Exam General: Alert, Oriented, Cooperative, No Acute Distress HEENT: Pupils Equal, Pupils Reactive, EOMI, Mucous Membr. Moist/[place] Neck: Supple, Trachea Midline, No JVD Lungs: Clear to Auscultation, Normal Respiratory Effort Cardiovascular: Regular Rate, Regular Rhythm GI/Abdominal Exam: Normal Bowel Sounds, Soft, Non-Tender, No Organomegaly, No Distention, No Abnormal Bruit (Female) Exam: Deferred Back Exam: Normal Inspection, Full Range of Motion Extremities: Normal Inspection, Normal Range of Motion, Non-Tender, No Pedal Edema, Normal Capillary Refill Skin: Rash (Skin flakes), Other (Right groin area shows 1 x 1 cm of superficial open wound with surrounding erythema and 1.5 x 0.5" of tender induration but no fluctuation. No purulent drainage.) - Problem List Review Problem List Initiated/Reviewed/Updated: Yes - Plan Plan:: Assessment and plan Folliculitis with cellulitis Patient was started on vancomycin and Zosyn on admission. Wound culture is positive for MSSA. She had 1 blood culture positive for MSSA. Repeated blood cultures were negative -Continue Zosyn. With uncontrolled diabetes mellitus and patient being unreliable with treatment compliance I recommend continuing IV Zosyn to complete 14 total days. Continue dressing change Diabetic ketoacidosis Patient is still having hyperglycemia Patient was having low blood glucose early in the morning -I will change her Levemir from evening to morning and increase it from 26-30 units -Change sliding scale insulin from medium dose to high-dose protocol -Check CBC, BMP, CRP, magnesium Urinary tract infection Urine culture grew Escherichia coli On Zosyn Diarrhea, improved C. difficile is negative Skin eruption/rash No respiratory symptoms Possible reaction to Levaquin Lovenox for DVT prophylaxis Patient is still needing hospital medical care due to her ongoing infection and uncontrolled diabetes mellitus
[2017-04-11] MEDS ORDERED: Insulin Detemir 100 Units/ML 3 ML Pen SUBCUT ONE (11:00)
[2017-04-12] MEDS: Acetaminophen/oxyCODONE 325-5 MG Tab PO PRN ×6 (00:11→21:32)
[2017-04-12] MEDS: Pantoprazole 40 MG Tab.CR PO SCH (05:29)
[2017-04-12] MEDS: Piperacillin/Tazobactam 3.375 GM in Sodium Chloride 0.9% 100 ML IV SCH ×4 (05:29→15:43)
[2017-04-12] MEDS: Sodium Chloride 0.9% 10 ML Syringe FLUSH PRN ×2 (05:29→06:03)
[2017-04-12 06:53] LABS: CHLORIDE,CL 101 mmol/L (101-111); SODIUM,NA 137 mmol/L (135-145)
[2017-04-12] MEDS: Insulin Aspart 100 Units/ML 3 ML Pen SUBCUT SCH ×4 (08:44→21:24)
[2017-04-12] MEDS: Insulin Detemir 100 Units/ML 3 ML Pen SUBCUT SCH (08:45)
[2017-04-12] MEDS: Lisinopril 10 MG Tab PO SCH (08:47)
[2017-04-12] MEDS: Enoxaparin 40 MG/0.4 ML Syringe SUBCUT SCH (08:48)
[2017-04-12] MEDS: Potassium Chloride 10 MEQ Tab.ER PO SCH (08:48)
--- NOTE | 2017-04-12 15:39 | PCM.PN ---
- General Info Date of Service: 04/12/17 Admission Dx/Problem (Free Text): Abdominal wall cellulitis. DKA Subjective Update: Patient stated that she she is feeling nauseous and tired and not feeling generally good.patient stated that she was stressing to urinate this morning dysuria, frequency, blood in the urine. However she is still complaining of right groin tenderness but improving. She still admits chills but denies fever, vomiting, shortness breath, chest pain, any other symptoms or concern. - Patient Data Vitals - Most Recent: Last Vital Signs Temp 36.8 C 04/12/17 08:22 Pulse 86 04/12/17 08:22 Resp 20 04/12/17 08:22 BP 131/75 04/12/17 08:47 Pulse Ox 99 04/12/17 08:22 Weight - Most Recent: 58.513 kg I&O - Last 24 Hours: Intake & Output 04/12/17 04/12/17 04/12/17 06:59 14:59 22:59 Intake Total 800 820 Balance 800 820 Lab Results Last 24 Hours: Laboratory Results - last 24 hr 04/11/17 04/11/17 04/12/17 Range/Units 16:49 20:59 06:22 WBC 7.2 (5.0-10.0) 10^3/uL RBC 3.93 L (4.2-5.4) 10^6/uL Hgb 9.1 L (12.0-16.0) g/dL Hct 30.6 L (37.0-47.0) % MCV 77.9 L (80-100) fL MCH 23.2 L (27.0-34.0) pg MCHC 29.7 L (33.0-35.0) g/dL Plt Count 506 H (150-450) 10^3/uL Neut % (Auto) 41.7 L (42.2-75.2) % Lymph % (Auto) 38.8 (20.5-50.1) % [place] % (Auto) 7.9 (2-8) % Eos % (Auto) 10.9 H (1.0-3.0) % Baso % (Auto) 0.7 (0.0-1.0) % Add Manual Diff Sodium (135-145) mmol/L Potassium (3.6-5.0) mmol/L Chloride (101-111) mmol/L Carbon Dioxide (21.0-31.0) mmol/L Anion Gap BUN (7-18) mg/dL Creatinine (0.6-1.3) mg/dL Est Cr Clr Drug Dosing mL/min Estimated GFR (MDRD) Glucose (74-105) mg/dL POC Glucose 257 H 169 H (70-105) mg/dl Calcium (8.4-10.2) mg/dl Magnesium (1.8-2.5) mg/dL C-Reactive Protein (0.0-1.3) mg/dL 04/12/17 04/12/17 04/12/17 Range/Units 06:22 06:22 07:55 WBC (5.0-10.0) 10^3/uL RBC (4.2-5.4) 10^6/uL Hgb (12.0-16.0) g/dL Hct (37.0-47.0) % MCV (80-100) fL MCH (27.0-34.0) pg MCHC (33.0-35.0) g/dL Plt Count (150-450) 10^3/uL Neut % (Auto) (42.2-75.2) % Lymph % (Auto) (20.5-50.1) % [place] % (Auto) (2-8) % Eos % (Auto) (1.0-3.0) % Baso % (Auto) (0.0-1.0) % Add Manual Diff Sodium 137 (135-145) mmol/L Potassium 4.7 (3.6-5.0) mmol/L Chloride 101 (101-111) mmol/L Carbon Dioxide 24.0 (21.0-31.0) mmol/L Anion Gap 16.7 BUN 15 (7-18) mg/dL Creatinine 0.8 (0.6-1.3) mg/dL Est Cr Clr Drug Dosing 101.03 mL/min Estimated GFR (MDRD) > 60 Glucose 210 H (74-105) mg/dL POC Glucose 198 H (70-105) mg/dl Calcium 9.0 (8.4-10.2) mg/dl Magnesium 1.9 (1.8-2.5) mg/dL C-Reactive Protein 0.7 (0.0-1.3) mg/dL 04/12/17 04/12/17 Range/Units 11:13 12:06 WBC (5.0-10.0) 10^3/uL RBC (4.2-5.4) 10^6/uL Hgb (12.0-16.0) g/dL Hct (37.0-47.0) % MCV (80-100) fL MCH (27.0-34.0) pg MCHC (33.0-35.0) g/dL Plt Count (150-450) 10^3/uL Neut % (Auto) (42.2-75.2) % Lymph % (Auto) (20.5-50.1) % [place] % (Auto) (2-8) % Eos % (Auto) (1.0-3.0) % Baso % (Auto) (0.0-1.0) % Add Manual Diff Sodium (135-145) mmol/L Potassium (3.6-5.0) mmol/L Chloride (101-111) mmol/L Carbon Dioxide (21.0-31.0) mmol/L Anion Gap BUN (7-18) mg/dL Creatinine (0.6-1.3) mg/dL Est Cr Clr Drug Dosing mL/min Estimated GFR (MDRD) Glucose (74-105) mg/dL POC Glucose 267 H 246 H (70-105) mg/dl Calcium (8.4-10.2) mg/dl Magnesium (1.8-2.5) mg/dL C-Reactive Protein (0.0-1.3) mg/dL Med Orders - Current: Current Medications Acetaminophen (Tylenol) 650 mg PO Q4H PRN PRN Reason: Pain (Mild 1-3)/fever Last Admin: 04/09/17 20:58 Dose: 650 mg Acetaminophen (Tylenol) 650 mg RECTAL Q4H PRN PRN Reason: Fever Greater Than 102 Last Admin: 04/05/17 21:36 Dose: 650 mg Ceftriaxone Sodium 1 gm/ (Lidocaine HCl 2.1 ml) 0 gm IM Q24H [facility] Diphenhydramine HCl (Benadryl) 25 mg PO QID PRN PRN Reason: Itching Last Admin: 04/06/17 16:23 Dose: 25 mg Docusate Sodium (Colace) 100 mg PO BID PRN PRN Reason: Constipation Last Admin: 04/08/17 12:33 Dose: 100 mg Enoxaparin Sodium (Lovenox) 40 mg SUBCUT DAILY [facility] Last Admin: 04/12/17 08:48 Dose: 40 mg Ferrous Sulfate (Ferrous Sulfate) 325 mg PO BIDMEALS [facility] Piperacillin Sod/Tazobactam (Sod 3.375 gm/ Sodium Chloride) 100 mls @ 200 mls/ hr IV Q6HR [facility] Last Infusion: 04/12/17 06:01 Dose: Infused Insulin Aspart (Novolog) 0 unit SUBCUT QIDACANDBED [facility] PRN Reason: Protocol Last Admin: 04/12/17 12:26 Dose: 6 units Insulin Detemir (Levemir) 30 unit SUBCUT [facility]AWW [facility] Last Admin: 04/12/17 08:45 Dose: 30 units Lisinopril (Prinivil) 10 mg PO DAILY [facility] Last Admin: 04/12/17 08:47 Dose: 10 mg Loperamide HCl (Imodium) 2 mg PO Q4H PRN PRN Reason: Diarrhea Last Admin: 04/03/17 18:10 Dose: 2 mg Magnesium Hydroxide (Milk Of Magnesia) 30 ml PO Q12H PRN PRN Reason: Constipation Last Admin: 04/08/17 12:32 Dose: 30 ml Magnesium Oxide (Magnesium Oxide) 500 mg PO BIDM [facility] Last Admin: 04/12/17 08:48 Dose: 500 mg Metoclopramide HCl (Reglan) 10 mg IVPUSH Q8H PRN PRN Reason: Nausea Last Admin: 04/01/17 03:11 Dose: 10 mg Ondansetron HCl (Zofran) 4 mg IVPUSH Q4H PRN PRN Reason: Nausea/Vomiting Last Admin: 04/05/17 18:27 Dose: 4 mg Oxycodone/Acetaminophen (Percocet 325-5 Mg) 1 tab PO Q4H PRN PRN Reason: Pain (moderate 4-6) Last Admin: 04/12/17 13:25 Dose: 1 tab Pantoprazole Sodium (Protonix) 40 mg PO ACBREAKFAST [facility] Last Admin: 04/12/17 05:29 Dose: 40 mg Potassium Chloride (Klor-Con 10) 20 meq PO QAWW [facility] [place] Last Admin: 04/12/17 08:48 Dose: 20 meq Promethazine HCl (Phenergan) 25 mg IM Q8H PRN PRN Reason: Nausea Last Admin: 04/05/17 19:52 Dose: 25 mg Sodium Chloride (Saline Flush) 10 ml FLUSH ASDIRECTED PRN PRN Reason: Keep Vein Open Last Admin: 04/12/17 06:03 Dose: 10 ml Zolpidem Tartrate (Ambien) 5 mg PO BEDTIME PRN PRN Reason: Sleep Discontinued Medications Amlodipine Besylate (Norvasc) 5 mg PO ONETIME ONE Stop: 04/07/17 00:37 Last Admin: 04/07/17 00:46 Dose: 5 mg Calcium Carbonate/Glycine (Tums) 500 mg PO BIDM [facility] Last Admin: 04/05/17 08:50 Dose: 500 mg Calcium Carbonate/Glycine (Tums) 500 mg PO WITHBREAKFAST [facility] Last Admin: 04/06/17 11:06 Dose: Not Given Furosemide (Lasix) 40 mg IVPUSH NOW ONE Stop: 04/05/17 16:16 Last Admin: 04/05/17 16:23 Dose: 40 mg Furosemide (Lasix) 20 mg PO ONETIME ONE Stop: 04/06/17 10:57 Last Admin: 04/06/17 11:59 Dose: 20 mg Sodium Chloride (Normal Saline) 1,000 mls @ 999 mls/hr IV .BOLUS ONE Stop: 03/31/17 21:02 Last Admin: 03/31/17 20:28 Dose: 999 mls/hr Insulin Human Regular 100 unit (/ Sodium Chloride) 100 mls @ 5 mls/hr IV ASDIRECTED [facility]; 5 UNIT/HR PRN Reason: Protocol Last Infusion: 04/01/17 19:22 Dose: 0 unit/hr, 0 mls/hr Vancomycin HCl 1 gm/ Sodium (Chloride) 250 mls @ 167 mls/hr IV ONETIME ONE Stop: 03/31/17 22:27 Last Admin: 03/31/17 21:19 Dose: 167 mls/hr Piperacillin Sod/Tazobactam (Sod 3.375 gm/ Sodium Chloride) 100 mls @ 200 mls/ hr IV Q6H [facility] Last Infusion: 04/01/17 05:40 Dose: Infused Sodium Chloride (Normal Saline) 1,000 mls @ 75 mls/hr IV ASDIRECTED [facility] Last Admin: 04/02/17 23:42 Dose: 75 mls/hr Vancomycin HCl 0.75 gm/ Sodium (Chloride) 250 mls @ 166.667 mls/hr IV Q8H [facility] Last Admin: 04/01/17 05:47 Dose: 166.667 mls/hr Magnesium Sulfate 2 gm/ Premix 50 mls @ 25 mls/hr IV ONETIME ONE Stop: 04/01/17 11:46 Last Admin: 04/01/17 10:05 Dose: 25 mls/hr Vancomycin HCl 0.75 gm/ Sodium (Chloride) 250 mls @ 166.667 mls/hr IV Q8H [facility] Last Admin: 04/03/17 10:32 Dose: 166.667 mls/hr Sodium Chloride (Normal Saline) 1,000 mls @ 1,000 mls/hr IV .BOLUS ONE Stop: 04/01/17 12:47 Last Admin: 04/01/17 12:19 Dose: 1,000 mls/hr Vancomycin HCl 0.75 gm/ Sodium (Chloride) 250 mls @ 166.667 mls/hr IV Q18H [facility] Last Admin: 04/03/17 10:39 Dose: Not Given Iron Sucrose 100 mg/ Sodium (Chloride) 105 mls @ 400 mls/hr IV DAILY [facility] Stop: 04/05/17 13:03 Last Admin: 04/03/17 19:05 Dose: Not Given Iron Sucrose 100 mg/ Sodium (Chloride) 105 mls @ 400 mls/hr IV DAILY@1800 [facility] Last Admin: 04/04/17 17:26 Dose: 400 mls/hr Sodium Chloride (Sodium Chloride 0.45%) 1,000 mls @ 100 mls/hr IV ASDIRECTED [facility] Last Infusion: 04/04/17 06:31 Dose: 75 mls/hr Levofloxacin/Dextrose 750 mg/ (Premix) 150 mls @ 100 mls/hr IV ONETIME ONE Stop: 04/05/17 12:08 Last Admin: 04/05/17 11:34 Dose: 100 mls/hr Insulin Aspart (Novolog) 0 unit SUBCUT Q4H [facility] PRN Reason: Protocol Last Admin: 04/03/17 13:07 Dose: Not Given Insulin Aspart (Novolog) 0 unit SUBCUT QIDACANDBED [facility] PRN Reason: Protocol Last Admin: 04/10/17 17:17 Dose: Not Given Insulin Aspart (Novolog) 8 unit SUBCUT ONETIME ONE Stop: 04/10/17 17:10 Last Admin: 04/10/17 17:15 Dose: 8 units Insulin Aspart (Novolog) 0 unit SUBCUT QIDACANDBED [facility] PRN Reason: Protocol Last Admin: 04/11/17 08:35 Dose: 6 units Insulin Aspart (Novolog) 14 unit SUBCUT ONETIME ONE Stop: 04/10/17 21:01 Last Admin: 04/10/17 21:20 Dose: 14 units Insulin Detemir (Levemir) 50 unit SUBCUT DAILY [facility] Last Admin: 04/01/17 10:05 Dose: Not Given Insulin Detemir (Levemir) 50 unit SUBCUT ONETIME ONE Stop: 04/01/17 03:44 Last Admin: 04/01/17 04:00 Dose: 50 units Insulin Detemir (Levemir) 50 unit SUBCUT DAILY [facility] Last Admin: 04/02/17 13:28 Dose: Not Given Insulin Detemir (Levemir) 50 unit SUBCUT BEDTIME [facility] Last Admin: 04/03/17 21:16 Dose: 50 units Insulin Detemir (Levemir) 40 unit SUBCUT BEDTIME [facility] Last Admin: 04/05/17 22:16 Dose: Not Given Insulin Detemir (Levemir) 32 unit SUBCUT ONETIME ONE Stop: 04/05/17 21:13 Last Admin: 04/05/17 21:51 Dose: 32 units Insulin Detemir (Levemir) 26 unit SUBCUT BEDTIME [facility] Last Admin: 04/10/17 21:18 Dose: 26 units Insulin Detemir (Levemir) 26 unit SUBCUT ONETIME ONE Stop: 04/11/17 11:01 Last Admin: 04/11/17 12:30 Dose: 26 units Insulin Human Regular (Humulin R) 10 unit IV ONETIME ONE PRN Reason: Protocol Stop: 03/31/17 21:01 Last Admin: 03/31/17 21:11 Dose: 10 units Iopamidol (Isovue-300 (61%)) 75 ml IVPUSH ONETIME ONE Stop: 04/05/17 13:44 Last Admin: 04/05/17 14:13 Dose: 75 ml Lidocaine HCl (Xylocaine-Mpf 1%) 30 ml INJECT ONETIME ONE Stop: 03/31/17 20:22 Last Admin: 03/31/17 20:28 Dose: 30 ml Magnesium Oxide (Magnesium Oxide) 250 mg PO BIDM [facility] Last Admin: 04/05/17 08:50 Dose: 250 mg Morphine Sulfate (Morphine) 2 mg IVPUSH ONETIME ONE Stop: 03/31/17 21:51 Last Admin: 03/31/17 22:00 Dose: 2 mg Morphine Sulfate (Morphine) 2 mg IVPUSH Q2H PRN PRN Reason: Pain (severe 7-10) Last Admin: 04/05/17 21:53 Dose: 2 mg Potassium Chloride (Klor-Con 10) 20 meq PO TIDMEALS [facility] Last Admin: 04/05/17 08:50 Dose: 20 meq Sodium Phosphate (Neutra-Phos) 500 mg PO TID [facility] Last Admin: 04/04/17 08:49 Dose: 500 mg Sodium Phosphate (Neutra-Phos) 500 mg PO BID [facility] Last Admin: 04/05/17 08:50 Dose: 500 mg Sodium Phosphate (Neutra-Phos) 250 mg PO QAM [facility] Last Admin: 04/06/17 11:06 Dose: Not Given Vancomycin HCl (Pharmacy To Dose - Vancomycin) 1 dose .XX ASDIRECTED [facility] - Exam General: Alert, Oriented HEENT: Pupils Equal, Pupils Reactive, EOMI, Mucous Membr. Moist/[place] Neck: Supple, Trachea Midline, No JVD Lungs: Clear to Auscultation, Normal Respiratory Effort. No: Crackles, Rales, Rhonchi, Wheezing Cardiovascular: Regular Rate, Regular Rhythm GI/Abdominal Exam: Normal Bowel Sounds, Soft, Non-Tender, No Organomegaly, No Abnormal Bruit, No Mass, Pelvis Stable (Female) Exam: Deferred Back Exam: Normal Inspection, Full Range of Motion. No: CVA Tenderness (L), CVA Tenderness (R) Extremities: Normal Inspection, Normal Range of Motion, Non-Tender, No Pedal Edema, Normal Capillary Refill Skin: Rash (Skin flakes, improving), Other (Right groin area shows 1 x 1 cm of superficial open wound with surrounding erythema and tender induration which are improving. no fluctuation. No purulent drainage.) Wound/Incisions: Healing Well - Problem List Review Problem List Initiated/Reviewed/Updated: Yes - My Orders Last 24 Hours: My Active Orders 04/12/17 09:00 Insulin Detemir [Levemir] 30 unit SUBCUT QAM 04/12/17 14:15 Ferrous Sulfate 325 mg PO BIDMEALS 04/12/17 15:45 cefTRIAXone [Rocephin] 1 gm Lidocaine 1% [Xylocaine-MPF 1%] 2.1 ml IM Q24H - Plan Plan:: Assessment and plan Folliculitis with cellulitis Patient was started on vancomycin and Zosyn on admission. Wound culture is positive for MSSA. She had 1 blood culture positive for MSSA. Repeated blood cultures were negative -Patient lost her IV access. She had multiple attempts by different staff members without success to insert no IV access. Patient declined trying farther. I changed Zosyn to Rocephin 1 g IM daily. With uncontrolled diabetes mellitus and patient being unreliable with treatment compliance I I continue to recommend continuing inpatient treatment to complete 14 total days of antibiotics. Continue dressing change Diabetes mellitus type 1 with Diabetic ketoacidosis Patient is still having hyperglycemia Patient was having low blood glucose early in the morning -Levemir was changed from evening to morning and increase it from 26-30 units on 04/11/70 -Sliding scale insulin from medium dose to high-dose protocol was changed on -Check CBC, BMP, CRP, magnesium She had appointment set up with dietitian when she gets discharged Urinary tract infection Urine culture grew Escherichia coli -Repeat UA and urine culture since she had some nausea today and she was having difficulty urinating Continue antibiotics Anemia, chronic Start oral iron therapy She was advised to follow-up with primary care provider to do outpatient workup on that. Diarrhea, improved C. difficile is negative Skin eruption/rash No respiratory symptoms Possible reaction to Levaquin Lovenox for DVT prophylaxis Patient is still needing hospital medical care due to her ongoing infection and uncontrolled diabetes mellitus
[2017-04-12] MEDS: Ferrous Sulfate 325 MG Tab PO SCH ×2 (16:11→17:43)
[2017-04-12] MEDS: cefTRIAXone 1 GM, Lidocaine 1% 2.1 ML IM SCH ×2 (16:11)
[2017-04-13] MEDS: Acetaminophen/oxyCODONE 325-5 MG Tab PO PRN ×5 (01:43→19:18)
[2017-04-13] MEDS: Pantoprazole 40 MG Tab.CR PO SCH (05:09)
[2017-04-13] MEDS: Insulin Aspart 100 Units/ML 3 ML Pen SUBCUT SCH ×3 (08:07→17:25)
[2017-04-13] MEDS: Enoxaparin 40 MG/0.4 ML Syringe SUBCUT SCH (08:17)
[2017-04-13] MEDS: Ferrous Sulfate 325 MG Tab PO SCH ×2 (08:17→17:22)
[2017-04-13] MEDS: Potassium Chloride 10 MEQ Tab.ER PO SCH (08:17)
[2017-04-13] MEDS: Lisinopril 10 MG Tab PO SCH (08:19)
[2017-04-13] MEDS: Insulin Detemir 100 Units/ML 3 ML Pen SUBCUT SCH (08:25)
[2017-04-13] MEDS ORDERED: Insulin Detemir 100 Units/ML 3 ML Pen SUBCUT ONE (10:12)
--- NOTE | 2017-04-13 13:23 | PCM.PN ---
- General Info Date of Service: 04/13/17 Admission Dx/Problem (Free Text): Abdominal wall cellulitis. DKA Subjective Update: Patient stated that she she is feeling better. Her nausea resolved and has no problem urinating. However she is still complaining of right groin tenderness. She denies dysuria, frequency, blood in the urine, fever, chills, vomiting, shortness breath, chest pain, any other symptoms or concern. - Patient Data Vitals - Most Recent: Last Vital Signs Temp 36.7 C 04/13/17 08:26 Pulse 93 04/13/17 08:26 Resp 20 04/13/17 08:26 BP 136/78 04/13/17 08:26 Pulse Ox 99 04/13/17 08:26 Weight - Most Recent: 58.513 kg I&O - Last 24 Hours: Intake & Output 04/12/17 04/13/17 04/13/17 22:59 06:59 14:59 Intake Total 600 1600 Output Total 300 1200 Balance 300 400 Lab Results Last 24 Hours: Laboratory Results - last 24 hr 04/12/17 04/12/17 04/12/17 Range/Units 17:02 20:30 20:51 POC Glucose 311 H 301 H (70-105) mg/dl Urine Color Yellow (YELLOW) Urine Appearance Clear (CLEAR) Urine pH 7.0 (5.0-9.0) Ur Specific [place] 1.010 (1.005-1.030) Urine Protein Negative (NEGATIVE) Urine Glucose (UA) 500 H (NEGATIVE) Urine Ketones Negative (NEGATIVE) Urine Occult Blood Negative (NEGATIVE) Urine Nitrite Negative (NEGATIVE) Urine Bilirubin Negative (NEGATIVE) Urine Urobilinogen 0.2 (0.2-1.0) mg/dL Ur Leukocyte Esterase Negative (NEGATIVE) Urine RBC 0-5 /HPF Urine WBC 0-5 (0-5/HPF) /HPF Ur Epithelial Cells Rare /HPF Amorphous Sediment Rare (0/HPF) /HPF Urine Bacteria Rare (0-FEW/HPF) /HPF 04/13/17 04/13/17 04/13/17 Range/Units 00:41 01:35 07:31 POC Glucose 59 L 270 H 288 H (70-105) mg/dl Urine Color (YELLOW) Urine Appearance (CLEAR) Urine pH (5.0-9.0) Ur Specific [place] (1.005-1.030) Urine Protein (NEGATIVE) Urine Glucose (UA) (NEGATIVE) Urine Ketones (NEGATIVE) Urine Occult Blood (NEGATIVE) Urine Nitrite (NEGATIVE) Urine Bilirubin (NEGATIVE) Urine Urobilinogen (0.2-1.0) mg/dL Ur Leukocyte Esterase (NEGATIVE) Urine RBC /HPF Urine WBC (0-5/HPF) /HPF Ur Epithelial Cells /HPF Amorphous Sediment (0/HPF) /HPF Urine Bacteria (0-FEW/HPF) /HPF 04/13/17 Range/Units 10:58 POC Glucose 191 H (70-105) mg/dl Urine Color (YELLOW) Urine Appearance (CLEAR) Urine pH (5.0-9.0) Ur Specific [place] (1.005-1.030) Urine Protein (NEGATIVE) Urine Glucose (UA) (NEGATIVE) Urine Ketones (NEGATIVE) Urine Occult Blood (NEGATIVE) Urine Nitrite (NEGATIVE) Urine Bilirubin (NEGATIVE) Urine Urobilinogen (0.2-1.0) mg/dL Ur Leukocyte Esterase (NEGATIVE) Urine RBC /HPF Urine WBC (0-5/HPF) /HPF Ur Epithelial Cells /HPF Amorphous Sediment (0/HPF) /HPF Urine Bacteria (0-FEW/HPF) /HPF Med Orders - Current: Current Medications Acetaminophen (Tylenol) 650 mg PO Q4H PRN PRN Reason: Pain (Mild 1-3)/fever Last Admin: 04/09/17 20:58 Dose: 650 mg Acetaminophen (Tylenol) 650 mg RECTAL Q4H PRN PRN Reason: Fever Greater Than 102 Last Admin: 04/05/17 21:36 Dose: 650 mg Ceftriaxone Sodium 1 gm/ (Lidocaine HCl 2.1 ml) 0 gm IM Q24H [facility] Last Admin: 04/12/17 16:11 Dose: 1 inj Diphenhydramine HCl (Benadryl) 25 mg PO QID PRN PRN Reason: Itching Last Admin: 04/06/17 16:23 Dose: 25 mg Docusate Sodium (Colace) 100 mg PO BID PRN PRN Reason: Constipation Last Admin: 04/08/17 12:33 Dose: 100 mg Enoxaparin Sodium (Lovenox) 40 mg SUBCUT DAILY [facility] Last Admin: 04/13/17 08:17 Dose: 40 mg Ferrous Sulfate (Ferrous Sulfate) 325 mg PO BIDMEALS [facility] Last Admin: 04/13/17 08:17 Dose: 325 mg Insulin Aspart (Novolog) 0 unit SUBCUT TIDMEALS [facility] PRN Reason: Protocol Last Admin: 04/13/17 12:00 Dose: 3 units Insulin Aspart (Novolog) 0 unit SUBCUT 2100 [facility] PRN Reason: Protocol Insulin Detemir (Levemir) 35 unit SUBCUT QAM [facility] Lisinopril (Prinivil) 10 mg PO DAILY [facility] Last Admin: 04/13/17 08:19 Dose: 10 mg Loperamide HCl (Imodium) 2 mg PO Q4H PRN PRN Reason: Diarrhea Last Admin: 04/03/17 18:10 Dose: 2 mg Magnesium Hydroxide (Milk Of Magnesia) 30 ml PO Q12H PRN PRN Reason: Constipation Last Admin: 04/08/17 12:32 Dose: 30 ml Magnesium Oxide (Magnesium Oxide) 500 mg PO BIDM [facility] Last Admin: 04/13/17 08:14 Dose: 500 mg Metoclopramide HCl (Reglan) 10 mg IVPUSH Q8H PRN PRN Reason: Nausea Last Admin: 04/01/17 03:11 Dose: 10 mg Ondansetron HCl (Zofran) 4 mg IVPUSH Q4H PRN PRN Reason: Nausea/Vomiting Last Admin: 04/05/17 18:27 Dose: 4 mg Oxycodone/Acetaminophen (Percocet 325-5 Mg) 1 tab PO Q4H PRN PRN Reason: Pain (moderate 4-6) Last Admin: 04/13/17 10:06 Dose: 1 tab Pantoprazole Sodium (Protonix) 40 mg PO ACBREAKFAST [facility] Last Admin: 04/13/17 05:09 Dose: 40 mg Potassium Chloride (Klor-Con 10) 20 meq PO QAM [facility] Last Admin: 04/13/17 08:17 Dose: 20 meq Promethazine HCl (Phenergan) 25 mg IM Q8H PRN PRN Reason: Nausea Last Admin: 04/05/17 19:52 Dose: 25 mg Sodium Chloride (Saline Flush) 10 ml FLUSH ASDIRECTED PRN PRN Reason: Keep Vein Open Last Admin: 04/12/17 06:03 Dose: 10 ml Zolpidem Tartrate (Ambien) 5 mg PO BEDTIME PRN PRN Reason: Sleep Discontinued Medications Amlodipine Besylate (Norvasc) 5 mg PO ONETIME ONE Stop: 04/07/17 00:37 Last Admin: 04/07/17 00:46 Dose: 5 mg Calcium Carbonate/Glycine (Tums) 500 mg PO BIDM [facility] Last Admin: 04/05/17 08:50 Dose: 500 mg Calcium Carbonate/Glycine (Tums) 500 mg PO WITHBREAKFAST [facility] Last Admin: 04/06/17 11:06 Dose: Not Given Furosemide (Lasix) 40 mg IVPUSH NOW ONE Stop: 04/05/17 16:16 Last Admin: 04/05/17 16:23 Dose: 40 mg Furosemide (Lasix) 20 mg PO ONETIME ONE Stop: 04/06/17 10:57 Last Admin: 04/06/17 11:59 Dose: 20 mg Sodium Chloride (Normal Saline) 1,000 mls @ 999 mls/hr IV .BOLUS ONE Stop: 03/31/17 21:02 Last Admin: 03/31/17 20:28 Dose: 999 mls/hr Insulin Human Regular 100 unit (/ Sodium Chloride) 100 mls @ 5 mls/hr IV ASDIRECTED [facility]; 5 UNIT/HR PRN Reason: Protocol Last Infusion: 04/01/17 19:22 Dose: 0 unit/hr, 0 mls/hr Vancomycin HCl 1 gm/ Sodium (Chloride) 250 mls @ 167 mls/hr IV ONETIME ONE Stop: 03/31/17 22:27 Last Admin: 03/31/17 21:19 Dose: 167 mls/hr Piperacillin Sod/Tazobactam (Sod 3.375 gm/ Sodium Chloride) 100 mls @ 200 mls/ hr IV Q6H [facility] Last Infusion: 04/01/17 05:40 Dose: Infused Sodium Chloride (Normal Saline) 1,000 mls @ 75 mls/hr IV ASDIRECTED [facility] Last Admin: 04/02/17 23:42 Dose: 75 mls/hr Vancomycin HCl 0.75 gm/ Sodium (Chloride) 250 mls @ 166.667 mls/hr IV Q8H [facility] Last Admin: 04/01/17 05:47 Dose: 166.667 mls/hr Magnesium Sulfate 2 gm/ Premix 50 mls @ 25 mls/hr IV ONETIME ONE Stop: 04/01/17 11:46 Last Admin: 04/01/17 10:05 Dose: 25 mls/hr Piperacillin Sod/Tazobactam (Sod 3.375 gm/ Sodium Chloride) 100 mls @ 200 mls/ hr IV Q6HR [facility] Last Admin: 04/12/17 15:43 Dose: Not Given Vancomycin HCl 0.75 gm/ Sodium (Chloride) 250 mls @ 166.667 mls/hr IV Q8H [facility] Last Admin: 04/03/17 10:32 Dose: 166.667 mls/hr Sodium Chloride (Normal Saline) 1,000 mls @ 1,000 mls/hr IV .BOLUS ONE Stop: 04/01/17 12:47 Last Admin: 04/01/17 12:19 Dose: 1,000 mls/hr Vancomycin HCl 0.75 gm/ Sodium (Chloride) 250 mls @ 166.667 mls/hr IV Q18H [facility] Last Admin: 04/03/17 10:39 Dose: Not Given Iron Sucrose 100 mg/ Sodium (Chloride) 105 mls @ 400 mls/hr IV DAILY [facility] Stop: 04/05/17 13:03 Last Admin: 04/03/17 19:05 Dose: Not Given Iron Sucrose 100 mg/ Sodium (Chloride) 105 mls @ 400 mls/hr IV DAILY@1800 [facility] Last Admin: 04/04/17 17:26 Dose: 400 mls/hr Sodium Chloride (Sodium Chloride 0.45%) 1,000 mls @ 100 mls/hr IV ASDIRECTED [facility] Last Infusion: 04/04/17 06:31 Dose: 75 mls/hr Levofloxacin/Dextrose 750 mg/ (Premix) 150 mls @ 100 mls/hr IV ONETIME ONE Stop: 04/05/17 12:08 Last Admin: 04/05/17 11:34 Dose: 100 mls/hr Insulin Aspart (Novolog) 0 unit SUBCUT Q4H [facility] PRN Reason: Protocol Last Admin: 04/03/17 13:07 Dose: Not Given Insulin Aspart (Novolog) 0 unit SUBCUT QIDACANDBED [facility] PRN Reason: Protocol Last Admin: 04/10/17 17:17 Dose: Not Given Insulin Aspart (Novolog) 8 unit SUBCUT ONETIME ONE Stop: 04/10/17 17:10 Last Admin: 04/10/17 17:15 Dose: 8 units Insulin Aspart (Novolog) 0 unit SUBCUT QIDACANDBED [facility] PRN Reason: Protocol Last Admin: 04/11/17 08:35 Dose: 6 units Insulin Aspart (Novolog) 14 unit SUBCUT ONETIME ONE Stop: 04/10/17 21:01 Last Admin: 04/10/17 21:20 Dose: 14 units Insulin Aspart (Novolog) 0 unit SUBCUT QIDACANDBED [facility] PRN Reason: Protocol Last Admin: 04/13/17 08:07 Dose: 9 units Insulin Detemir (Levemir) 50 unit SUBCUT DAILY [facility] Last Admin: 04/01/17 10:05 Dose: Not Given Insulin Detemir (Levemir) 50 unit SUBCUT ONETIME ONE Stop: 04/01/17 03:44 Last Admin: 04/01/17 04:00 Dose: 50 units Insulin Detemir (Levemir) 50 unit SUBCUT DAILY [facility] Last Admin: 04/02/17 13:28 Dose: Not Given Insulin Detemir (Levemir) 50 unit SUBCUT BEDTIME [facility] Last Admin: 04/03/17 21:16 Dose: 50 units Insulin Detemir (Levemir) 40 unit SUBCUT BEDTIME [facility] Last Admin: 04/05/17 22:16 Dose: Not Given Insulin Detemir (Levemir) 32 unit SUBCUT ONETIME ONE Stop: 04/05/17 21:13 Last Admin: 04/05/17 21:51 Dose: 32 units Insulin Detemir (Levemir) 26 unit SUBCUT BEDTIME [facility] Last Admin: 04/10/17 21:18 Dose: 26 units Insulin Detemir (Levemir) 26 unit SUBCUT ONETIME ONE Stop: 04/11/17 11:01 Last Admin: 04/11/17 12:30 Dose: 26 units Insulin Detemir (Levemir) 30 unit SUBCUT QAM [facility] Last Admin: 04/13/17 08:25 Dose: 30 units Insulin Detemir (Levemir) 5 unit SUBCUT ONETIME ONE Stop: 04/13/17 10:13 Last Admin: 04/13/17 10:31 Dose: 5 units Insulin Human Isoph/Insulin Regular (Novolin 70-30) 20 unit SUBCUT DAILY@0800 [facility] Insulin Human Isoph/Insulin Regular (Novolin 70-30) 10 unit SUBCUT 1800 [facility] Insulin Human Regular (Humulin R) 10 unit IV ONETIME ONE PRN Reason: Protocol Stop: 03/31/17 21:01 Last Admin: 03/31/17 21:11 Dose: 10 units Iopamidol (Isovue-300 (61%)) 75 ml IVPUSH ONETIME ONE Stop: 04/05/17 13:44 Last Admin: 04/05/17 14:13 Dose: 75 ml Lidocaine HCl (Xylocaine-Mpf 1%) 30 ml INJECT ONETIME ONE Stop: 03/31/17 20:22 Last Admin: 03/31/17 20:28 Dose: 30 ml Magnesium Oxide (Magnesium Oxide) 250 mg PO BIDM [facility] Last Admin: 04/05/17 08:50 Dose: 250 mg Morphine Sulfate (Morphine) 2 mg IVPUSH ONETIME ONE Stop: 03/31/17 21:51 Last Admin: 03/31/17 22:00 Dose: 2 mg Morphine Sulfate (Morphine) 2 mg IVPUSH Q2H PRN PRN Reason: Pain (severe 7-10) Last Admin: 04/05/17 21:53 Dose: 2 mg Potassium Chloride (Klor-Con 10) 20 meq PO TIDMEALS [facility] Last Admin: 04/05/17 08:50 Dose: 20 meq Sodium Phosphate (Neutra-Phos) 500 mg PO TID [facility] Last Admin: 04/04/17 08:49 Dose: 500 mg Sodium Phosphate (Neutra-Phos) 500 mg PO BID [facility] Last Admin: 04/05/17 08:50 Dose: 500 mg Sodium Phosphate (Neutra-Phos) 250 mg PO QAM [facility] Last Admin: 04/06/17 11:06 Dose: Not Given Vancomycin HCl (Pharmacy To Dose - Vancomycin) 1 dose .XX ASDIRECTED [facility] - Exam General: Alert, Oriented, Cooperative, No Acute Distress. No: Mild Distress, Moderate Distress, Severe Distress, Sedated, Lethargic, Obtunded HEENT: Pupils Equal, Pupils Reactive, EOMI, Mucous Membr. Moist/[place] Neck: Supple, Trachea Midline, No JVD Lungs: Clear to Auscultation, Normal Respiratory Effort Cardiovascular: Regular Rate, Regular Rhythm GI/Abdominal Exam: Normal Bowel Sounds, Soft, Non-Tender, No Organomegaly, No Distention, No Abnormal Bruit, No Mass, Pelvis Stable (Female) Exam: Deferred Back Exam: Normal Inspection, Full Range of Motion Extremities: Normal Inspection, Normal Range of Motion, Non-Tender, No Pedal Edema, Normal Capillary Refill Skin: Other (Skin flex almost resolved. Right groin wound and induration are improving. No purulent drainage.) Neurological: No New Focal Deficit Psy/Mental Status: Alert, Normal Affect, Normal Mood. No: Suicidal Ideation, Homicidal Ideation, Hallucinations, Withdrawal Symptoms - Problem List Review Problem List Initiated/Reviewed/Updated: Yes - My Orders Last 24 Hours: My Active Orders 04/12/17 14:15 Ferrous Sulfate 325 mg PO BIDMEALS 04/12/17 15:45 cefTRIAXone [Rocephin] 1 gm Lidocaine 1% [Xylocaine-MPF 1%] 2.1 ml IM Q24H 04/12/17 20:30 CULTURE URINE [RM] Routine 04/13/17 12:00 Insulin Aspart [NovoLOG] See Protocol SUBCUT TIDMEALS 04/13/17 21:00 Insulin Aspart [NovoLOG] See Protocol SUBCUT 2100 04/14/17 05:11 BASIC METABOLIC PANEL,BMP [CHEM] AM CBC WITH AUTO DIFF [HEME] AM 04/14/17 09:00 Insulin Detemir [Levemir] 35 unit SUBCUT QAM - Plan Plan:: Assessment and plan Folliculitis with cellulitis Patient was started on vancomycin and Zosyn on admission. Wound culture is positive for MSSA. She had 1 blood culture positive for MSSA. Repeated blood cultures were negative On 04/12 1917 patient lost her IV access. So her Zosyn was changed to Rocephin 1 g IM daily. With uncontrolled diabetes mellitus and patient being unreliable with treatment compliance I I continue to recommend continuing inpatient treatment to complete 14 total days of antibiotics. Continue dressing change Diabetes mellitus type 1 with Diabetic ketoacidosis Patient is still having hyperglycemia Patient was having low blood glucose early in the morning -Levemir was changed from evening to morning and increase it from 26-30 units on 04/11/17. On 04/13/17 liver is increased to 35 units in the morning -Sliding scale insulin from medium dose to high-dose protocol was changed on . On 04/13/17 patient continued to be on high-dose protocol times a day but low dose protocol at night She had appointment set up with dietitian when she gets discharged Hypoglycemia Patient is having low blood glucose after midnight, was still having high blood glucoses during the day Liver morning dose was increased and night sliding scale was changed from high- dose protocol to low-dose protocol Urinary tract infection Urine culture grew Escherichia coli Repeated UA on 04/12/17 was positive only for glucose Continue antibiotics Anemia, chronic Started on oral iron therapy She was advised to follow-up with primary care provider to do outpatient workup on that. Diarrhea, resolved C. difficile is negative Skin eruption/rash Resolved No respiratory symptoms Possible reaction to Levaquin Lovenox for DVT prophylaxis Patient is still needing hospital medical care due to her ongoing infection and uncontrolled diabetes mellitus
[2017-04-13] MEDS: cefTRIAXone 1 GM, Lidocaine 1% 2.1 ML IM SCH ×2 (15:54)
[2017-04-13] MEDS ORDERED: Insulin Aspart 100 Units/ML 3 ML Pen SUBCUT ONE (17:02)
[2017-04-13] MEDS ORDERED: Insulin NPH/Insulin Regular,Human 70-30 100 Units/ML 10 ML Vial SUBCUT SCH (18:00)
[2017-04-13] MEDS ORDERED: Insulin Aspart 100 Units/ML 3 ML Pen SUBCUT SCH (21:00)
[2017-04-14] MEDS: Acetaminophen/oxyCODONE 325-5 MG Tab PO PRN ×3 (04:11→15:57)
[2017-04-14] MEDS: Pantoprazole 40 MG Tab.CR PO SCH (05:26)
[2017-04-14 07:13] LABS: CHLORIDE,CL 97 mmol/L (101-111); SODIUM,NA 130 mmol/L (135-145)
[2017-04-14] MEDS ORDERED: Insulin Aspart 100 Units/ML 3 ML Pen SUBCUT ONE (07:42)
[2017-04-14] MEDS ORDERED: Insulin NPH/Insulin Regular,Human 70-30 100 Units/ML 10 ML Vial SUBCUT SCH (08:00)
[2017-04-14] MEDS ORDERED: Insulin Detemir 100 Units/ML 3 ML Pen SUBCUT SCH (09:00)
[2017-04-14] MEDS: Insulin Aspart 100 Units/ML 3 ML Pen SUBCUT SCH ×3 (09:39→20:35)
[2017-04-14] MEDS: Enoxaparin 40 MG/0.4 ML Syringe SUBCUT SCH (09:40)
[2017-04-14] MEDS: Potassium Chloride 10 MEQ Tab.ER PO SCH (09:41)
[2017-04-14] MEDS: Ferrous Sulfate 325 MG Tab PO SCH ×2 (09:41→20:35)
[2017-04-14] MEDS: Lisinopril 10 MG Tab PO SCH (09:42)
[2017-04-14] MEDS ORDERED: Insulin Detemir 100 Units/ML 3 ML Pen SUBCUT ONE (11:15)
--- NOTE | 2017-04-14 11:32 | PCM.PN ---
- General Info Date of Service: 04/14/17 Admission Dx/Problem (Free Text): Abdominal wall cellulitis. DKA Subjective Update: Patient stated that she she is feeling better. She complains of nausea today and still complaining of right groin tenderness. She denies dysuria, frequency, blood in the urine, fever, chills, vomiting, shortness breath, chest pain, any other symptoms or concern. - Patient Data Vitals - Most Recent: Last Vital Signs Temp 36.8 C 04/14/17 08:54 Pulse 83 04/14/17 08:54 Resp 20 04/14/17 08:54 BP 125/81 04/14/17 09:42 Pulse Ox 100 04/14/17 08:54 Weight - Most Recent: 58.513 kg I&O - Last 24 Hours: Intake & Output 04/13/17 04/14/17 04/14/17 22:59 06:59 14:59 Intake Total 900 1250 230 Balance 900 1250 230 Lab Results Last 24 Hours: Laboratory Results - last 24 hr 04/13/17 04/13/17 04/13/17 Range/Units 10:58 16:49 20:45 WBC (5.0-10.0) 10^3/uL RBC (4.2-5.4) 10^6/uL Hgb (12.0-16.0) g/dL Hct (37.0-47.0) % MCV (80-100) fL MCH (27.0-34.0) pg MCHC (33.0-35.0) g/dL Plt Count (150-450) 10^3/uL Neut % (Auto) (42.2-75.2) % Lymph % (Auto) (20.5-50.1) % [place] % (Auto) (2-8) % Eos % (Auto) (1.0-3.0) % Baso % (Auto) (0.0-1.0) % Sodium (135-145) mmol/L Potassium (3.6-5.0) mmol/L Chloride (101-111) mmol/L Carbon Dioxide (21.0-31.0) mmol/L Anion Gap BUN (7-18) mg/dL Creatinine (0.6-1.3) mg/dL Est Cr Clr Drug Dosing mL/min Estimated GFR (MDRD) Glucose (74-105) mg/dL POC Glucose 191 H 414 H* 334 H (70-105) mg/dl Calcium (8.4-10.2) mg/dl 04/14/17 04/14/17 04/14/17 Range/Units 06:05 06:05 08:20 WBC 6.2 (5.0-10.0) 10^3/uL RBC 3.87 L (4.2-5.4) 10^6/uL Hgb 9.2 L (12.0-16.0) g/dL Hct 30.3 L (37.0-47.0) % MCV 78.3 L (80-100) fL MCH 23.8 L (27.0-34.0) pg MCHC 30.4 L (33.0-35.0) g/dL Plt Count 557 H (150-450) 10^3/uL Neut % (Auto) 47.6 (42.2-75.2) % Lymph % (Auto) 37.9 (20.5-50.1) % [place] % (Auto) 7.4 (2-8) % Eos % (Auto) 6.0 H (1.0-3.0) % Baso % (Auto) 1.1 H (0.0-1.0) % Sodium 130 L (135-145) mmol/L Potassium 5.0 (3.6-5.0) mmol/L Chloride 97 L (101-111) mmol/L Carbon Dioxide 22.0 (21.0-31.0) mmol/L Anion Gap 16.0 BUN 23 H (7-18) mg/dL Creatinine 0.8 (0.6-1.3) mg/dL Est Cr Clr Drug Dosing 101.03 mL/min Estimated GFR (MDRD) > 60 Glucose 506 H* (74-105) mg/dL POC Glucose 377 H (70-105) mg/dl Calcium 8.7 (8.4-10.2) mg/dl 04/14/17 Range/Units 11:01 WBC (5.0-10.0) 10^3/uL RBC (4.2-5.4) 10^6/uL Hgb (12.0-16.0) g/dL Hct (37.0-47.0) % MCV (80-100) fL MCH (27.0-34.0) pg MCHC (33.0-35.0) g/dL Plt Count (150-450) 10^3/uL Neut % (Auto) (42.2-75.2) % Lymph % (Auto) (20.5-50.1) % [place] % (Auto) (2-8) % Eos % (Auto) (1.0-3.0) % Baso % (Auto) (0.0-1.0) % Sodium (135-145) mmol/L Potassium (3.6-5.0) mmol/L Chloride (101-111) mmol/L Carbon Dioxide (21.0-31.0) mmol/L Anion Gap BUN (7-18) mg/dL Creatinine (0.6-1.3) mg/dL Est Cr Clr Drug Dosing mL/min Estimated GFR (MDRD) Glucose (74-105) mg/dL POC Glucose 459 H* (70-105) mg/dl Calcium (8.4-10.2) mg/dl Thuan Results Last 24 Hours: Microbiology 04/12/17 20:30 Urine Culture - Final Urine, Clean Catch No Growth Med Orders - Current: Current Medications Acetaminophen (Tylenol) 650 mg PO Q4H PRN PRN Reason: Pain (Mild 1-3)/fever Last Admin: 04/09/17 20:58 Dose: 650 mg Acetaminophen (Tylenol) 650 mg RECTAL Q4H PRN PRN Reason: Fever Greater Than 102 Last Admin: 04/05/17 21:36 Dose: 650 mg Ceftriaxone Sodium 1 gm/ (Lidocaine HCl 2.1 ml) 0 gm IM Q24H [facility] Last Admin: 04/13/17 15:54 Dose: 1 inj Diphenhydramine HCl (Benadryl) 25 mg PO QID PRN PRN Reason: Itching Last Admin: 04/06/17 16:23 Dose: 25 mg Docusate Sodium (Colace) 100 mg PO BID PRN PRN Reason: Constipation Last Admin: 04/08/17 12:33 Dose: 100 mg Enoxaparin Sodium (Lovenox) 40 mg SUBCUT DAILY [facility] Last Admin: 04/14/17 09:40 Dose: 40 mg Ferrous Sulfate (Ferrous Sulfate) 325 mg PO BIDMEALS [facility] Last Admin: 04/14/17 09:41 Dose: 325 mg Insulin Aspart (Novolog) 0 unit SUBCUT TIDMEALS [facility] PRN Reason: Protocol Last Admin: 04/14/17 09:39 Dose: Not Given Insulin Aspart (Novolog) 0 unit SUBCUT 2100 [facility] PRN Reason: Protocol Last Admin: 04/13/17 21:31 Dose: 4 units Insulin Detemir (Levemir) 45 unit SUBCUT QAM [facility] Lisinopril (Prinivil) 10 mg PO DAILY [facility] Last Admin: 04/14/17 09:42 Dose: 10 mg Loperamide HCl (Imodium) 2 mg PO Q4H PRN PRN Reason: Diarrhea Last Admin: 04/03/17 18:10 Dose: 2 mg Magnesium Hydroxide (Milk Of Magnesia) 30 ml PO Q12H PRN PRN Reason: Constipation Last Admin: 04/08/17 12:32 Dose: 30 ml Magnesium Oxide (Magnesium Oxide) 500 mg PO BIDM [facility] Last Admin: 04/14/17 09:42 Dose: 500 mg Metoclopramide HCl (Reglan) 10 mg IVPUSH Q8H PRN PRN Reason: Nausea Last Admin: 04/01/17 03:11 Dose: 10 mg Ondansetron HCl (Zofran) 4 mg IVPUSH Q4H PRN PRN Reason: Nausea/Vomiting Last Admin: 04/05/17 18:27 Dose: 4 mg Oxycodone/Acetaminophen (Percocet 325-5 Mg) 1 tab PO Q4H PRN PRN Reason: Pain (moderate 4-6) Last Admin: 04/14/17 09:41 Dose: 1 tab Pantoprazole Sodium (Protonix) 40 mg PO ACBREAKFAST [facility] Last Admin: 04/14/17 05:26 Dose: 40 mg Potassium Chloride (Klor-Con 10) 20 meq PO QAM [facility] Last Admin: 04/14/17 09:41 Dose: 20 meq Promethazine HCl (Phenergan) 25 mg IM Q8H PRN PRN Reason: Nausea Last Admin: 04/05/17 19:52 Dose: 25 mg Sodium Chloride (Saline Flush) 10 ml FLUSH ASDIRECTED PRN PRN Reason: Keep Vein Open Last Admin: 04/12/17 06:03 Dose: 10 ml Zolpidem Tartrate (Ambien) 5 mg PO BEDTIME PRN PRN Reason: Sleep Discontinued Medications Amlodipine Besylate (Norvasc) 5 mg PO ONETIME ONE Stop: 04/07/17 00:37 Last Admin: 04/07/17 00:46 Dose: 5 mg Calcium Carbonate/Glycine (Tums) 500 mg PO BIDM [facility] Last Admin: 04/05/17 08:50 Dose: 500 mg Calcium Carbonate/Glycine (Tums) 500 mg PO WITHBREAKFAST [facility] Last Admin: 04/06/17 11:06 Dose: Not Given Furosemide (Lasix) 40 mg IVPUSH NOW ONE Stop: 04/05/17 16:16 Last Admin: 04/05/17 16:23 Dose: 40 mg Furosemide (Lasix) 20 mg PO ONETIME ONE Stop: 04/06/17 10:57 Last Admin: 04/06/17 11:59 Dose: 20 mg Sodium Chloride (Normal Saline) 1,000 mls @ 999 mls/hr IV .BOLUS ONE Stop: 03/31/17 21:02 Last Admin: 03/31/17 20:28 Dose: 999 mls/hr Insulin Human Regular 100 unit (/ Sodium Chloride) 100 mls @ 5 mls/hr IV ASDIRECTED [facility]; 5 UNIT/HR PRN Reason: Protocol Last Infusion: 04/01/17 19:22 Dose: 0 unit/hr, 0 mls/hr Vancomycin HCl 1 gm/ Sodium (Chloride) 250 mls @ 167 mls/hr IV ONETIME ONE Stop: 03/31/17 22:27 Last Admin: 03/31/17 21:19 Dose: 167 mls/hr Piperacillin Sod/Tazobactam (Sod 3.375 gm/ Sodium Chloride) 100 mls @ 200 mls/ hr IV Q6H [facility] Last Infusion: 04/01/17 05:40 Dose: Infused Sodium Chloride (Normal Saline) 1,000 mls @ 75 mls/hr IV ASDIRECTED [facility] Last Admin: 04/02/17 23:42 Dose: 75 mls/hr Vancomycin HCl 0.75 gm/ Sodium (Chloride) 250 mls @ 166.667 mls/hr IV Q8H [facility] Last Admin: 04/01/17 05:47 Dose: 166.667 mls/hr Magnesium Sulfate 2 gm/ Premix 50 mls @ 25 mls/hr IV ONETIME ONE Stop: 04/01/17 11:46 Last Admin: 04/01/17 10:05 Dose: 25 mls/hr Piperacillin Sod/Tazobactam (Sod 3.375 gm/ Sodium Chloride) 100 mls @ 200 mls/ hr IV Q6HR [facility] Last Admin: 04/12/17 15:43 Dose: Not Given Vancomycin HCl 0.75 gm/ Sodium (Chloride) 250 mls @ 166.667 mls/hr IV Q8H [facility] Last Admin: 04/03/17 10:32 Dose: 166.667 mls/hr Sodium Chloride (Normal Saline) 1,000 mls @ 1,000 mls/hr IV .BOLUS ONE Stop: 04/01/17 12:47 Last Admin: 04/01/17 12:19 Dose: 1,000 mls/hr Vancomycin HCl 0.75 gm/ Sodium (Chloride) 250 mls @ 166.667 mls/hr IV Q18H [facility] Last Admin: 04/03/17 10:39 Dose: Not Given Iron Sucrose 100 mg/ Sodium (Chloride) 105 mls @ 400 mls/hr IV DAILY [facility] Stop: 04/05/17 13:03 Last Admin: 04/03/17 19:05 Dose: Not Given Iron Sucrose 100 mg/ Sodium (Chloride) 105 mls @ 400 mls/hr IV DAILY@1800 [facility] Last Admin: 04/04/17 17:26 Dose: 400 mls/hr Sodium Chloride (Sodium Chloride 0.45%) 1,000 mls @ 100 mls/hr IV ASDIRECTED [facility] Last Infusion: 04/04/17 06:31 Dose: 75 mls/hr Levofloxacin/Dextrose 750 mg/ (Premix) 150 mls @ 100 mls/hr IV ONETIME ONE Stop: 04/05/17 12:08 Last Admin: 04/05/17 11:34 Dose: 100 mls/hr Insulin Aspart (Novolog) 0 unit SUBCUT Q4H [facility] PRN Reason: Protocol Last Admin: 04/03/17 13:07 Dose: Not Given Insulin Aspart (Novolog) 0 unit SUBCUT QIDACANDBED [facility] PRN Reason: Protocol Last Admin: 04/10/17 17:17 Dose: Not Given Insulin Aspart (Novolog) 8 unit SUBCUT ONETIME ONE Stop: 04/10/17 17:10 Last Admin: 04/10/17 17:15 Dose: 8 units Insulin Aspart (Novolog) 0 unit SUBCUT QIDACANDBED [facility] PRN Reason: Protocol Last Admin: 04/11/17 08:35 Dose: 6 units Insulin Aspart (Novolog) 14 unit SUBCUT ONETIME ONE Stop: 04/10/17 21:01 Last Admin: 04/10/17 21:20 Dose: 14 units Insulin Aspart (Novolog) 0 unit SUBCUT QIDACANDBED [facility] PRN Reason: Protocol Last Admin: 04/13/17 08:07 Dose: 9 units Insulin Aspart (Novolog) 18 unit SUBCUT ONETIME ONE Stop: 04/13/17 17:03 Last Admin: 04/13/17 17:22 Dose: 18 units Insulin Aspart (Novolog) 18 unit SUBCUT ONETIME ONE Stop: 04/14/17 07:43 Last Admin: 04/14/17 08:03 Dose: 18 units Insulin Detemir (Levemir) 50 unit SUBCUT DAILY [facility] Last Admin: 04/01/17 10:05 Dose: Not Given Insulin Detemir (Levemir) 50 unit SUBCUT ONETIME ONE Stop: 04/01/17 03:44 Last Admin: 04/01/17 04:00 Dose: 50 units Insulin Detemir (Levemir) 50 unit SUBCUT DAILY [facility] Last Admin: 04/02/17 13:28 Dose: Not Given Insulin Detemir (Levemir) 50 unit SUBCUT BEDTIME [facility] Last Admin: 04/03/17 21:16 Dose: 50 units Insulin Detemir (Levemir) 40 unit SUBCUT BEDTIME [facility] Last Admin: 04/05/17 22:16 Dose: Not Given Insulin Detemir (Levemir) 32 unit SUBCUT ONETIME ONE Stop: 04/05/17 21:13 Last Admin: 04/05/17 21:51 Dose: 32 units Insulin Detemir (Levemir) 26 unit SUBCUT BEDTIME [facility] Last Admin: 04/10/17 21:18 Dose: 26 units Insulin Detemir (Levemir) 26 unit SUBCUT ONETIME ONE Stop: 04/11/17 11:01 Last Admin: 04/11/17 12:30 Dose: 26 units Insulin Detemir (Levemir) 30 unit SUBCUT QAM [facility] Last Admin: 04/13/17 08:25 Dose: 30 units Insulin Detemir (Levemir) 35 unit SUBCUT QAM [facility] Last Admin: 04/14/17 11:06 Dose: 35 units Insulin Detemir (Levemir) 5 unit SUBCUT ONETIME ONE Stop: 04/13/17 10:13 Last Admin: 04/13/17 10:31 Dose: 5 units Insulin Detemir (Levemir) 10 unit SUBCUT ONETIME ONE Stop: 04/14/17 11:16 Insulin Human Isoph/Insulin Regular (Novolin 70-30) 20 unit SUBCUT DAILY@0800 [facility] Insulin Human Isoph/Insulin Regular (Novolin 70-30) 10 unit SUBCUT 1800 [facility] Insulin Human Regular (Humulin R) 10 unit IV ONETIME ONE PRN Reason: Protocol Stop: 03/31/17 21:01 Last Admin: 03/31/17 21:11 Dose: 10 units Iopamidol (Isovue-300 (61%)) 75 ml IVPUSH ONETIME ONE Stop: 04/05/17 13:44 Last Admin: 04/05/17 14:13 Dose: 75 ml Lidocaine HCl (Xylocaine-Mpf 1%) 30 ml INJECT ONETIME ONE Stop: 03/31/17 20:22 Last Admin: 03/31/17 20:28 Dose: 30 ml Magnesium Oxide (Magnesium Oxide) 250 mg PO BIDM [facility] Last Admin: 04/05/17 08:50 Dose: 250 mg Morphine Sulfate (Morphine) 2 mg IVPUSH ONETIME ONE Stop: 03/31/17 21:51 Last Admin: 03/31/17 22:00 Dose: 2 mg Morphine Sulfate (Morphine) 2 mg IVPUSH Q2H PRN PRN Reason: Pain (severe 7-10) Last Admin: 04/05/17 21:53 Dose: 2 mg Potassium Chloride (Klor-Con 10) 20 meq PO TIDMEALS [facility] Last Admin: 04/05/17 08:50 Dose: 20 meq Sodium Phosphate (Neutra-Phos) 500 mg PO TID [facility] Last Admin: 04/04/17 08:49 Dose: 500 mg Sodium Phosphate (Neutra-Phos) 500 mg PO BID [facility] Last Admin: 04/05/17 08:50 Dose: 500 mg Sodium Phosphate (Neutra-Phos) 250 mg PO QAM [facility] Last Admin: 04/06/17 11:06 Dose: Not Given Vancomycin HCl (Pharmacy To Dose - Vancomycin) 1 dose .XX ASDIRECTED [facility] - Exam General: Alert, Oriented, Cooperative. No: No Acute Distress, Mild Distress, Moderate Distress, Severe Distress, Sedated, Lethargic, Obtunded HEENT: Pupils Equal, Pupils Reactive, EOMI, Mucous Membr. Moist/[place] Neck: Supple, Trachea Midline, No JVD Lungs: Clear to Auscultation, Normal Respiratory Effort Cardiovascular: Regular Rate, Regular Rhythm GI/Abdominal Exam: Normal Bowel Sounds, Soft, Non-Tender, No Organomegaly, No Distention, No Abnormal Bruit, No Mass. No: Distended, Guarding, Rigid, Rebound (Female) Exam: Deferred Back Exam: Normal Inspection, Full Range of Motion. No: CVA Tenderness (L), CVA Tenderness (R) Extremities: Normal Inspection, Normal Range of Motion, Non-Tender, No Pedal Edema, Normal Capillary Refill Skin: Other (Right going wound and induration improved from yesterday. No fluctuation or purulent drainage appreciated) - Problem List Review Problem List Initiated/Reviewed/Updated: Yes - My Orders Last 24 Hours: My Active Orders 04/13/17 12:00 Insulin Aspart [NovoLOG] See Protocol SUBCUT TIDMEALS 04/13/17 21:00 Insulin Aspart [NovoLOG] See Protocol SUBCUT 2100 04/15/17 07:00 Insulin Detemir [Levemir] 45 unit SUBCUT QAM - Plan Plan:: Assessment and plan Folliculitis with cellulitis Patient was started on vancomycin and Zosyn on admission. Wound culture is positive for MSSA. She had 1 blood culture positive for MSSA. Repeated blood cultures were negative On 04/12 1917 patient lost her IV access. So her Zosyn was changed to Rocephin 1 g IM daily. With uncontrolled diabetes mellitus and patient being unreliable with treatment compliance I I continue to recommend continuing inpatient treatment to complete 14 total days of antibiotics. Continue dressing change Diabetes mellitus type 1 with Diabetic ketoacidosis Patient is still having hyperglycemia Patient was having low blood glucose early in the morning -Levemir was changed from evening to morning and increased from 26-30 units on , and blood glucose was improving. On 04/13/17 liver is increased to 35 units in the morning. -For the last 24 hour blood glucose has been ranging between 400 and over 500. I 'm increasing her Levemir to 45 units starting today -Sliding scale insulin from medium dose to high-dose protocol was changed on . On 04/13/17 patient continued to be on high-dose protocol during the day but low dose protocol at night She had appointment set up with dietitian when she gets discharged Hypoglycemia Patient is having low blood glucose after midnight, was still having high blood glucoses during the day Liver morning dose was increased and night sliding scale was changed from high- dose protocol to low-dose protocol Urinary tract infection Urine culture grew Escherichia coli Repeated UA on 04/12/17 was positive only for glucose Continue antibiotics Anemia, chronic Started on oral iron therapy She was advised to follow-up with primary care provider to do outpatient workup on that. Diarrhea, resolved C. difficile is negative Skin eruption/rash Resolved No respiratory symptoms Possible reaction to Levaquin Lovenox for DVT prophylaxis Patient is still needing hospital medical care due to her ongoing infection and uncontrolled diabetes mellitus
[2017-04-14] MEDS: cefTRIAXone 1 GM, Lidocaine 1% 2.1 ML IM SCH ×2 (15:56)
[2017-04-14 15:57] VITALS: BP 119/65
[2017-04-15] MEDS ORDERED: Insulin Detemir 100 Units/ML 3 ML Pen SUBCUT SCH (07:00)
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
== END 2017-04-14 21:00 | disposition left against medical advice (07) | DRG 602 ==
LOC: DL.ED 19:41 → DL.MS 21:15 → UNDOADMIN 21:15 → DL.MS 22:18
PROVIDERS: ADMIT Internal Medicine; ATTEND Internal Medicine
DX: L03.314 Cellulitis of groin (principal); E10.10 Type 1 diabetes mellitus with ketoacidosis without coma; A41.01 Sepsis due to Methicillin susceptible Staphylococcus aureus; E87.1 Hypo-osmolality and hyponatremia; N39.0 Urinary tract infection, site not specified; J90 Pleural effusion, not elsewhere classified; D64.9 Anemia, unspecified; Z87.891 Personal history of nicotine dependence; E83.42 Hypomagnesemia; E83.39 Other disorders of phosphorus metabolism; E83.51 Hypocalcemia; B96.20 Unspecified Escherichia coli [E. coli] as the cause of diseases classified elsewhere; B95.61 Methicillin susceptible Staphylococcus aureus infection as the cause of diseases classified elsewhere; D50.9 Iron deficiency anemia, unspecified; R19.7 Diarrhea, unspecified; E10.649 Type 1 diabetes mellitus with hypoglycemia without coma; R21 Rash and other nonspecific skin eruption; Z88.8 Allergy status to other drugs, medicaments and biological substances; Z79.4 Long term (current) use of insulin
CPT/HCPCS: 36415; 74177; 80048; 80053; 80202; 80305; 81001; 81003; 81025; 82009; 82330; 82607; 82728; 82746; 82962; 83036; 83540; 83550; 83605; 83735; 84100; 85025; 85027; 86140; 87040; 87070; 87077; 87086; 87088; 87186; 87493; 96361; 96374; 99284; A9270-GY; J0696; J1650; J1756; J1815; J1815-GY; J1940; J1956; J2270; J2405; J2543; J2550; J2765; J3370; J3475; J7030; J7050; Q9967

== ENCOUNTER 2017-04-22 23:50 | Observation (INO) | payer MEDICAID ==
[2017-04-23 01:11] LABS: CHLORIDE,CL 90 mmol/L (101-111); SODIUM,NA 123 mmol/L (135-145)
[2017-04-23] MEDS ORDERED: Sodium Chloride 0.9% 1,000 ML IV ONE (01:28)
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
[2017-04-23] MEDS ORDERED: Insulin Regular, Human 100 Units/ML 3 ML Vial IV ONE (01:39)
[2017-04-23 02:11] LABS: BASE EXCESS ARTERIAL -4 mmol/L ((-2)-(+3)); O2 DELIVERY DEVICE ROOM AIR; O2 SATURATION ARTERIAL 97 % (95-100); PCO2 ARTERIAL 35 mmHg (35-45); PO2 ARTERIAL 116 mmHg (70-100)
[2017-04-23 02:16] LABS: O2 FLOW RATE 0
[2017-04-23] MEDS: Sodium Chloride 0.9% 1,000 ML IV SCH ×4 (03:04→20:51)
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
[2017-04-23] MEDS ORDERED: Docusate Sodium 100 MG Cap PO PRN (03:57)
[2017-04-23] MEDS: Heparin Sodium 5,000 Units/ML Vial SUBCUT SCH ×3 (04:33→20:18)
[2017-04-23] MEDS: Acetaminophen 325 MG Tab PO PRN ×4 (05:54→23:27)
[2017-04-23] MEDS: Insulin Detemir 100 Units/ML 3 ML Pen SUBCUT SCH (08:15)
[2017-04-23] MEDS: Insulin Aspart 100 Units/ML 3 ML Pen SUBCUT SCH ×7 (08:16→21:54)
[2017-04-23] MEDS: Gabapentin 100 MG Cap PO SCH ×3 (10:33→20:13)
[2017-04-24] MEDS: Sodium Chloride 0.9% 1,000 ML IV SCH (01:49)
[2017-04-24] MEDS: Acetaminophen 325 MG Tab PO PRN ×2 (03:45→08:17)
[2017-04-24] MEDS: Heparin Sodium 5,000 Units/ML Vial SUBCUT SCH (03:46)
[2017-04-24 07:00] LABS: CHLORIDE,CL 106 mmol/L (101-111); SODIUM,NA 135 mmol/L (135-145)
[2017-04-24] MEDS: Gabapentin 100 MG Cap PO SCH (08:17)
[2017-04-24] MEDS: Insulin Detemir 100 Units/ML 3 ML Pen SUBCUT SCH (08:18)
[2017-04-24] MEDS: Insulin Aspart 100 Units/ML 3 ML Pen SUBCUT SCH ×2 (08:18→08:19)
[2017-04-24 09:06] VITALS: BP 136/82
--- NOTE | 2017-04-24 09:40 | PCM.DCSUM1 ---
Discharge Summary - Hospital Course Free Text/Narrative:: Ms Carlisle is a 22-year-old lady with medical history of type 1 diabetes, Multiple hospitalization with DKA, S/P appendectomy. The patient presented to the emergency room in [place] with complaints of burning of head and headache at home. She ays she had not had her supper last night and checked her Blood sugar at home and it was very high and decided to come to ED. In ED blood sugar was 743 g/dl , she sates that her blood sugar is difficult to control and even with drinking water it gets high. the pt is on lavemir ashort-acting Insulin at home. Today she had no nausea, Vomiting, dysuria, Fever, chill, but has left lower quadrant abdominal pain.The pt could not have complete Colonoscopy because of poor preparation Dr. Roy recommended her to have good preperation and not done, attempt to do colonoscopy was in January 14, 2017. After her admission she was started on IVF ( NS at 150 ml/hr) and resemued her Levemir and started short acting insulin 5 units 3 rtimes a day before meals and her blood sugar stayed within 150-220 g/dl . She is also started on Gabapentin 300 mg daily for Neuropathic pain. She will be going home today and advise to see her PMD in 1-2 days and she is also advise to see a blasting coal miner and manager french as soon as possible. She is advised to learn carb count before each meal and take the short acting insulin before meals depending upon the carb count. - Discharge Data Discharge Date: 04/24/17 Discharge Disposition: Home, Self-Care 01 Condition: Good - Discharge Diagnosis/Problem(s) (1) Uncontrolled diabetes mellitus SNOMED Code(s): 033071600 ICD Code: E11.65 - TYPE 2 DIABETES MELLITUS WITH HYPERGLYCEMIA Status: Acute Current Visit: Yes Qualifiers: Diabetes mellitus type: type 1 Diabetes mellitus complication status: without complication Qualified Code(s): E10.65 - Type 1 diabetes mellitus with hyperglycemia (2) Hyperglycemia SNOMED Code(s): 97073770 ICD Code: R73.9 - HYPERGLYCEMIA, UNSPECIFIED Status: Acute Current Visit : Yes - Patient Instructions Diet: Diabetic Diet Activity: As Tolerated Driving: May Drive Today Showering/Bathing: May Shower Notify Provider of: Fever, Nausea and/or Vomiting Other/Special Instructions: She was admitted with Hyperglycemia without DKA. and blood sugar on admiossion was 743 g/dl,after her admission she was started on IVF ( NS at 150 ml/hr) and resemued her Levemir and started short acting insulin 5 units 3 rtimes a day before meals and her blood sugar stayed within 150-220 g/dl . She is also started on Gabapentin 300 mg daily for Neuropathic pain. She will be going home today ( 04/24) and advise her to see her PMD in 1-2 days and she is also advise to see a blasting coal miner and manager french as soon as possible. She is advised to learn carb count before each meal and take the short acting insulin before meals depending upon the carb count - Discharge Plan Prescriptions/Med Rec: Gabapentin [Neurontin] 300 mg PO DAILY #20 cap Home Medications: Home Meds Insulin Aspart [Novolog Flexpen] See Protocol SUBCUT TIDMEALS #10 ml 11/02/16 [ Rx] Insulin Detemir [Levemir] 33 units SUBCUT DAILY 12/18/16 [History] Gabapentin [Neurontin] 300 mg PO DAILY #20 cap 04/24/17 [Rx] Patient Handouts: Diabetes and Standards of Medical Care, Hyperglycemia, Easy- to-Read, Basic Carbohydrate Counting for Diabetes Mellitus - Discharge Summary/Plan Comment DC Time >30 min.: Yes Discharge Summary/Plan Comment: The patient is a 21-year-old Female who presented with hyperglycemia ands also complaining of abdominal discomfort left lower quadrant ASSESMENT AND PLAN 1. Hyperglycemia: The patient was noted to have severe hyperglycemia with blood sugars >700 g/dl -She has received 10 units of IV Insulin in ED with that the last Blood sugar ( FS) was 227 g/dl - She stayed on NS at 150 ml/hrx 24 hrs -Did not require Insulin drip, resumed home Insulin regimen -The reason for hypoglycemia likely not taking Insulin properly , but she claims that she is frustrated because sometime her Blood Sugar is elevated even without eating, like today she had not had Supper but still the blood sugar was elevated -She will need evaluation by Film Loader for proper control of her diabetes , Her A1c on 08/27/16 at [facility] was >14.7% and she has Peripheral neuropathy -she is advise to See PMD in 2-3 days and also need to be seen by manager french and Project Manager/Design Manager as soon as possible 2. Diabetes 1: She was Dxed with diabetes at age of 12, her Mother was diabetic and she is already -She is on Levemir 33 units daily and started short acting insulin 5 units TID before meals 3. Pseudohyponatremia: This was from Hyperglecemia ,and sodium normalized with Improvement of Hyperglycemia 4. Abdominal Pain: The patient was complaining of abdominal pain, may be from constipation,she was placed on Bowel regimen and she feels better 5. B/L LE Neuropathic Pain: will start Gabapentin at 300 mg daily and she will follow with PMD in 1-2 days 6. Disposition: she will be going home today and advise to see her PMD in 1-2 days - General Info Admission Dx/Problem (Free Text: Admitted with Hyperglycemia- Blood sugar of 743 g/dl with no DKA Functional Status: Reports: Pain Controlled, Tolerating Diet, Ambulating, Urinating - Review of Systems General: Reports: Appetite (good). Denies: Fever, Chills HEENT: Denies: Eye Pain, Headaches, Sinus Congestion, Visual Changes Pulmonary: Denies: Shortness of Breath, Pleuritic Chest Pain, Cough, Sputum, Wheezing Cardiovascular: Denies: Chest Pain, Dyspnea on Exertion, Lightheadedness Gastrointestinal: Denies: Abdominal Pain, Diarrhea, Nausea, Vomiting Genitourinary: Denies: Dysuria, Urgency, Flank Pain Musculoskeletal: Reports: Leg Pain (likely Neuropathicc). Denies: Neck Pain, Shoulder Pain Skin: Denies: Cyanosis, Jaundice, Bruising, Pruritis, Rash Neurological: Reports: Numbness (of lower extremity). Denies: Confusion, Tremors, Difficulty Walking, Weakness Psychiatric: Denies: Confusion, Anxiety - Patient Data Vitals - Most Recent: Last Vital Signs Temp 36.9 C 04/24/17 08:00 Pulse 95 04/24/17 08:00 Resp 20 04/24/17 08:00 BP 136/82 04/24/17 08:00 Pulse Ox 100 04/24/17 08:00 Weight - Most Recent: 58.513 kg I&O - Last 24 hours: Intake & Output 04/23/17 04/24/17 04/24/17 22:59 06:59 14:59 Intake Total 200 3558 Output Total 1000 3000 Balance -800 558 Lab Results - Last 24 hrs: Laboratory Results - last 24 hr 04/23/17 04/23/17 04/23/17 Range/Units 10:35 11:08 17:13 Sodium (135-145) mmol/L Potassium (3.6-5.0) mmol/L Chloride (101-111) mmol/L Carbon Dioxide (21.0-31.0) mmol/L Anion Gap BUN (7-18) mg/dL Creatinine (0.6-1.3) mg/dL Est Cr Clr Drug Dosing mL/min Estimated GFR (MDRD) Glucose (74-105) mg/dL POC Glucose 232 H 97 (70-105) mg/dl Calcium (8.4-10.2) mg/dl Urine Color Yellow (YELLOW) Urine Appearance Cloudy (CLEAR) Urine pH 7.0 (5.0-9.0) Ur Specific [place] 1.020 (1.005-1.030) Urine Protein Trace H (NEGATIVE) Urine Glucose (UA) 500 H (NEGATIVE) Urine Ketones Negative (NEGATIVE) Urine Occult Blood Negative (NEGATIVE) Urine Nitrite Negative (NEGATIVE) Urine Bilirubin Negative (NEGATIVE) Urine Urobilinogen 0.2 (0.2-1.0) mg/dL Ur Leukocyte Esterase Negative (NEGATIVE) Urine RBC 0-5 /HPF Urine WBC 20-30 H (0-5/HPF) /HPF Ur Epithelial Cells Moderate H /HPF Urine Bacteria Rare (0-FEW/HPF) /HPF Urine Mucus Rare /LPF 04/23/17 04/24/17 04/24/17 Range/Units 21:44 06:30 07:46 Sodium 135 D (135-145) mmol/L Potassium 4.0 (3.6-5.0) mmol/L Chloride 106 D (101-111) mmol/L Carbon Dioxide 21.0 (21.0-31.0) mmol/L Anion Gap 12.0 BUN 9 (7-18) mg/dL Creatinine 0.4 L (0.6-1.3) mg/dL Est Cr Clr Drug Dosing 202.05 mL/min Estimated GFR (MDRD) > 60 Glucose 184 H (74-105) mg/dL POC Glucose 255 H 152 H (70-105) mg/dl Calcium 8.5 (8.4-10.2) mg/dl Urine Color (YELLOW) Urine Appearance (CLEAR) Urine pH (5.0-9.0) Ur Specific [place] (1.005-1.030) Urine Protein (NEGATIVE) Urine Glucose (UA) (NEGATIVE) Urine Ketones (NEGATIVE) Urine Occult Blood (NEGATIVE) Urine Nitrite (NEGATIVE) Urine Bilirubin (NEGATIVE) Urine Urobilinogen (0.2-1.0) mg/dL Ur Leukocyte Esterase (NEGATIVE) Urine RBC /HPF Urine WBC (0-5/HPF) /HPF Ur Epithelial Cells /HPF Urine Bacteria (0-FEW/HPF) /HPF Urine Mucus /LPF Med Orders - Current: Current Medications Acetaminophen (Tylenol) 650 mg PO Q4H PRN PRN Reason: Pain (mild 1-3 )/fever Last Admin: 04/24/17 08:17 Dose: 650 mg Docusate Sodium (Colace) 100 mg PO DAILY PRN PRN Reason: Constipation Gabapentin (Neurontin) 200 mg PO TID [facility] Gabapentin (Neurontin) 100 mg PO ONETIME ONE Stop: 04/24/17 09:46 Heparin Sodium (Porcine) (Heparin Sodium) 5,000 units SUBCUT Q8H [facility] Last Admin: 04/24/17 03:46 Dose: 5,000 units Sodium Chloride (Normal Saline) 1,000 mls @ 200 mls/hr IV ASDIRECTED [facility] Last Infusion: 04/24/17 07:28 Dose: Infused Insulin Aspart (Novolog) 5 unit SUBCUT TIDAC [facility] Last Admin: 04/24/17 08:18 Dose: 5 units Insulin Aspart (Novolog) 0 unit SUBCUT QID [facility] PRN Reason: Protocol Last Admin: 04/24/17 08:19 Dose: 2 units Insulin Detemir (Levemir) 0 unit SUBCUT DAILY [facility] Last Admin: 04/24/17 08:18 Dose: 33 units Discontinued Medications Gabapentin (Neurontin) 100 mg PO TID [facility] Last Admin: 04/24/17 08:17 Dose: 100 mg Sodium Chloride (Normal Saline) 1,000 mls @ 999 mls/hr IV .BOLUS ONE Stop: 04/23/17 02:28 Last Admin: 04/23/17 01:29 Dose: 999 mls/hr Insulin Human Regular (Humulin R) 10 unit IV ONETIME ONE PRN Reason: Protocol Stop: 04/23/17 01:40 Last Admin: 04/23/17 01:45 Dose: 10 units - Exam Quality Assessment: Reports: DVT Prophylaxis. Denies: Supplemental Oxygen, Urine Catheter General: Reports: Alert, Oriented, Cooperative, No Acute Distress HEENT: Reports: Pupils Equal, EOMI, Mucous Membr. Moist/[place] Neck: Reports: Supple, No JVD, No Thyromegaly Lungs: Reports: Clear to Auscultation, Normal Respiratory Effort Cardiovascular: Reports: Regular Rate, Regular Rhythm, No Murmurs GI/Abdominal Exam: Normal Bowel Sounds, Soft, Non-Tender, No Distention. No: Guarding, Rigid, Rebound (Female) Exam: Deferred Rectal (Female) Exam: Deferred Back Exam: Reports: Normal Inspection, Full Range of Motion Extremities: Normal Inspection, No Pedal Edema Skin: Reports: Warm, Dry, Intact Neurological: Reports: No New Focal Deficit, Normal Gait, Normal Speech Psy/Mental Status: Reports: Alert, Normal Affect, Normal Mood *Q Meaningful Use (DIS) - VTE *Q VTE Criteria *Q: - Stroke *Q Stroke Criteria *Q: - AMI *Q AMI Criteria *Q:
[2017-04-24] MEDS ORDERED: Gabapentin 100 MG Cap PO ONE ×2 (09:45→10:00)
[2017-04-24] MEDS ORDERED: FLU VAC QS 17-18(4YR UP)CEL/PF 60 MCG/0.5 ML Syringe IM ONE ×2 (10:58→11:15)
[2017-04-24] MEDS ORDERED: Gabapentin 100 MG Cap PO SCH (14:00)
[2017-04-25] MEDS ORDERED: Gabapentin 300 MG Cap PO SCH (09:00)
[2017-04-26 11:31] LABS: ALLEN TEST NOT PERFORMED
== END 2017-04-24 11:38 | disposition home or self-care (01) ==
LOC: DL.ED 23:50 → UNDOADMIN 04-23 02:30 → DL.MS 04-23 02:30 → INTOOBSV 04-23 03:57 → DL.MS 04-23 03:57
PROVIDERS: ADMIT Internal Medicine Nephrology; ATTEND Internal Medicine Nephrology
DX: E10.65 Type 1 diabetes mellitus with hyperglycemia (principal); E87.1 Hypo-osmolality and hyponatremia; D64.9 Anemia, unspecified; R10.32 Left lower quadrant pain; E10.40 Type 1 diabetes mellitus with diabetic neuropathy, unspecified; Z88.1 Allergy status to other antibiotic agents; Z79.4 Long term (current) use of insulin; Z88.8 Allergy status to other drugs, medicaments and biological substances
CPT/HCPCS: 36415; 36600; 80048; 80053; 81001; 82803; 82962; 83605; 85025; 87040; 96361; 96372; 96374; 99285; A9270; G0008; G0378; J1644; J1815; J7030; 90674; 96360